=== PATIENT | female | born 1935 | race Caucasian/White ===

== ENCOUNTER → 2017-09-29 | Outpatient (CLI) | payer MEDICARE, OTHER ==
[~2017-09-29] MED LIST: ALE70 PO; ASP325 PO; ASPI-1267; ASPI-757 PO; ASPI81TA94 PO; ATOR40TA24; ATOR40TA24 PO; AVALIDE; BENZ200C38 PO; CALC-1046 PO; CALC-515 PO; CALC-797 PO; CALC500T42 PO; CALC500T6 PO; CELE-1 PO; CEP500 PO; CEPH500T7 PO; CHOL500045 PO; CLO75 PO; CLOP75TA43 PO; CYC10 PO; DOC100 PO; DOXY-181 PO; ESCI20TA38 PO; FLUT16SP20 NS; GLUC-234 PO; GLUC1TAB35 PO; GUAI120L3 PO; HYDR-385 PO; IPRA15SP7 NS; IRBE1TAB24 PO; IRBE75TA4 PO; KET10 PO; LINA145C PO; LOPE-95 PO; LOR5 PO; LORA1TAB69 PO; LOSA-31; LOSA-32 PO; LOSA-38 PO; LOSA-51 PO; MEC25 PO; MECL12.5 PO; MECL25TA9 PO; MEP50 PO; METH4TAB66 PO; METO25TA93; MULT-820 PO; MULT-865 PO; NAP500 PO; OMEG300C PO; OMEP-218 PO; ONDA4TAB PO; PANT40TA65 PO; PER PO; PNEI IJ; POTT20; PRA20 PO; PRE20 PO; PRED-1 PO; PRED20TA6 PO; ROS10 PO; ROSU20TA23 PO; TICA90TA PO; VIT-9 PO; VIT1CAPS34 PO; [UNRECOGNIZED DRUG - CODE] PO; [UNRECOGNIZED DRUG - CODE] PO; [UNRECOGNIZED DRUG - OTHER] PO; [UNRECOGNIZED DRUG - REMARK]
== END ==
LOC: LAB 13:46
PROVIDERS: ATTEND Internal Medicine
DX: E03.9 Hypothyroidism, unspecified (principal)
CPT/HCPCS: 36415; 84443

== ENCOUNTER 2017-12-14 10:26 | Outpatient (RCR) | payer MEDICARE, OTHER ==
[2017-12-08 10:04] VITALS: BP_SYST 132
[2017-12-08 10:19] LABS: PLATELET COUNT, AUTOMATED 115 K/uL (150-450)
[~2017-12-14 10:26] MED LIST changes: +CHOL10005 PO; +CHOL200051 PO; +CYAN250013; +MECL25TA27 PO; +MULT-27 PO; +OMEG100032 PO; +OMEG10007
[2017-12-14 10:33] VITALS: BP 136/61
--- NOTE | 2017-12-14 17:13 | ONCOLOGY FOLLOW UP NOTE ---
EVENT DATE: December 14, 2017 DIAGNOSES 1. Multiple lytic lesions and latencies involving the calvaria, proximal right femur, distal left radius and ulna. 2. History of left breast cancer, status post lumpectomy and adjuvant radiation therapy in 1989. 3. Hypertension. CHIEF COMPLAINT Patient is here today for followup of her breast cancer. ONCOLOGY HISTORY The patient is an 82-year-old woman who had history of left breast cancer status post lumpectomy in 1989 followed by adjuvant radiation therapy. She received her radiation therapy between January 23, 1990 through March 14, 1990. The patient did not receive any chemotherapy or hormonal therapy after surgery. All of her lymph nodes, as per patient, were negative for metastases at that time. She presented with loss of appetite and weight in 2012. The patient had a GI workup and was found to have gallstones. The patient had a cholecystectomy , but continued to have the same problem with diarrhea, loss of appetite and loss of weight. She had a CT scan of the head on June 02, 2011 which was negative at that time. She had a skeletal bone survey done on June 09, 2011 which revealed the presence of small lucencies in the calvaria, proximal right femur, distal left radius and ulna. Serum protein electrophoresis and urine protein electrophoresis came back normal, ruling out the possibility of multiple myeloma. The patient is here today for followup of her multiple lytic bone lesions. The patient is doing fine except she has worsening arthritis, especially of the knees. The patient is going to see an orthopedic surgeon in [place] for further evaluation and management. HISTORY OF PRESENT ILLNESS Patient is here today for followup of her breast cancer. She is doing fine currently. She has some runny nose. She has generalized joint pains due to arthritis. She has dizzy spells lately and she is followed by her primary care for that. She is complaining of headache occasionally. PAST MEDICAL HISTORY 1. Left breast cancer, status post lumpectomy followed by radiation therapy in 1989. 2. Hypercholesterolemia. 3. Hypertension. 4. Arthritis. PAST SURGICAL HISTORY 1. Back surgery in 1996 and 2003. 2. Surgery of left and right legs for varicose veins in January 2011. 3. Tonsillectomy. 4. Appendectomy. 5. Spinal neck surgery. 6. Cholecystectomy in 2010. 7. Carpal tunnel release. 8. Hysterectomy, but ovaries are intact. 9. Lumpectomy of left breast in 1989. 10. Right knee arthroscopic surgery on June 14, 2016. SOCIAL HISTORY The patient is . She has four sons and one daughter. 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 Denies any abuse of tobacco , alcohol or drugs. FAMILY HISTORY Father had prostate cancer. Mother had metastatic cancer. She does not know exactly the same. CURRENT MEDICATIONS 1. Vitamin B 5000 U daily. 2. PreserVision tablets, 1 tablet daily. 3. Fish oil 300 mg daily. 4. Calcium 600 mg daily. 5. Aspirin 325 mg daily. 6. Hyzaar 50/12.5 tablets, 1 tablet daily. 7. Multivitamin 1 tablet daily. ALLERGIES She is allergic to CODEINE, DARVOCET, ULTRAM, DOXEPIN, MORPHINE SULFATE, DIPYRIDAMOLE, DARVON, NORGESIC, CEREBYX, PERCOCET, AMOXICILLIN. REVIEW OF SYSTEMS CONSTITUTIONAL: No appetite or weight change. No fever, chills or sweating. No recent infection. HEENT: Ears: No tinnitus or hearing problem. Nose: She has runny nose. Throat: No sore throat or mouth ulcers. Eyes: No diplopia or visual changes. RESPIRATORY: No shortness of breath. No cough, expectoration or hemoptysis. CARDIOVASCULAR: No chest pain, orthopnea, or paroxysmal nocturnal dyspnea (PND) . No edema. No palpitations. GASTROINTESTINAL: She has intermittent constipation. GENITOURINARY: No hematuria or dysuria. MUSCULOSKELETAL: She has generalized joint pains. NEUROLOGICAL: She has dizzy spells and occasional headache. HEMATOLOGIC/LYMPHATIC: She is weak, tired and fatigued. No enlarged lymph nodes. SKIN: No skin rash or lumps. PSYCHIATRIC: No anxiety or depression. PHYSICAL EXAMINATION GENERAL: Looks stable. Well-developed, well-nourished, and in no acute distress. VITAL SIGNS: Blood pressure 136/61, pulse 75 per minute, respirations 16 per minute, temperature 98.1, pulse ox 88% on room air. HEENT: Head: Atraumatic. No sinus tenderness to palpation. Eyes: No icterus or conjunctivitis. Mouth and throat: No oral thrush or mucositis. NECK: Supple. No cervical or supraclavicular lymphadenopathy. LUNGS: Clear to auscultation and percussion bilaterally. HEART: Regular rate and rhythm. No gallops, murmurs, clicks or rubs. ABDOMEN: Soft and lax. No tenderness. No hepatosplenomegaly. No masses. EXTREMITIES: On the left foot, there is a firm mass at the middle of the plantar surface of the left foot about 0.5 cm in diameter. LYMPHATICS: No peripheral lymphadenopathy. NEUROLOGICAL: Conscious, alert and oriented times three. No focal motor or sensory deficits. PSYCHIATRIC: Mood and affect appear normal. SKIN: No skin rash, bruise or purpuric eruption. DIAGNOSTIC DATA CBC showed a white count 4.9, hemoglobin 15, hematocrit 44.1, platelets 115, 000. Chem panel totally normal except AST 46. Tumor markers with CA 15-3 is normal at 13, and CA 27-29 is normal at 15.8. ASSESSMENT 1. History of left breast cancer status post lumpectomy and adjuvant radiation therapy in 1989. Patient had multiple lucencies in the bone including calvarium , proximal right femur and distal left radius and ulna. Serum protein electrophoresis came back normal. There was polyclonal protein in the urine. Workup for recurrent breast cancer including tumor markers with CA 27-29 and CA 15-3 came back normal. MRI of the brain was negative. PET scan was also negative. Lucencies in the bone could be due to either vitamin B deficiency or osteoporosis. Patient is doing fine currently. Her tumor markers are normal currently and the patient does not have any evidence of disease recurrence. I am planning to continue followup in four months with CBC, chem panel, CA 27-29 and CA 15-3. 2. Generalized arthritis. 3. Osteopenia on calcium supplement. 4. Hypertension on treatment. 5. History of vitamin D deficiency. Patient was on supplement which was discontinued by her recently. PLAN 1. Check vitamin D level today. 2. Patient to return in four months with CBC, chem panel, CA 27-29 and CA 15- 3. 3. Patient to contact us for any new concerns or complaints. SARITHAD
== END 2018-01-19 16:18 | disposition home or self-care (01) ==
LOC: ONC 10:26
PROVIDERS: ATTEND Internal Medicine Hematology
DX: Z85.3 Personal history of malignant neoplasm of breast (principal); M19.90 Unspecified osteoarthritis, unspecified site; M85.80 Other specified disorders of bone density and structure, unspecified site; I10 Essential (primary) hypertension; R53.1 Weakness; R53.83 Other fatigue
CPT/HCPCS: 36415; 82306; 85025; 86300; G0463; 82040; 82247; 82310; 82374; 82435; 82565; 82947; 84075; 84132; 84155; 84295; 84450; 84460; 84520; 99212

== ENCOUNTER 2018-02-27 10:45 | Outpatient (RCR) | payer MEDICARE, OTHER ==
--- NOTE | 2017-12-01 11:51 | PT INITIAL EVALUATION ---
MEDICAL DIAGNOSIS: R42 Dizziness, nonspecific, R 42 Vertigo TREATMENT DIAGNOSIS: R26.89 Imbalance DATE OF ONSET: 07/02/17 SUBJECTIVE: Kassidy Stearns presents to PT for dizziness, insidious onset in the fall of 2016. She has had vertigo in the past. She relates her BP, heart and ears have been checked out in the last 1-2 months and they're all fine. She fell in her bathroom 12/01/17 due to this dizziness, striking her R head and shoulder. She can't relate cause and effect except that head down positions will provoke her symptoms. Her symptoms are nausea, then dizziness without spinning, then headache. She isn't vacuuming or dusting her home because of the need for head changes. Pain location is upper neck and described as ache. Pain scale is 0 on a ten point pain scale. Pain is worse with unsure and better with Tylenol. REHAB PROBLEM LIST: Increased Pain Decreased ROM Decreased Strength Impaired Transfers Decreased Endurance Decreased Mobility Decreased Gait PREVIOUS MEDICAL HISTORY: HTN, A. fib., BPPV, stent (2011), breast cancer (), TIA, 3 lumbar and one cervical surgery. OCCUPATION: Retired. Lives in a split level home with her , has her sons who check in on them. Kassidy relates she has less energy with house cleaning, only able to vacuum or dust one room per day, whereas before these symptoms she could clean 2+ rooms per day. OBJECTIVE: Posture: Forward head, increased thoracic kyphosis, R mild valgus knee, hips flexed ~20 degrees. ROM: Cervical PROM rotation 50% B, [id number]%, cervical pain but no dizziness. Strength: LE's 4-/5. Palpation: Tight cervical and thoracic soft tissue. Special Tests: Negative B Hallpike and roll test for vertiginous signs and symptoms. Mobility: Sit<>stand with LE's against mat table or UE's use, slow, heels 6" apart. Gait: Ambulates with feet clearing the floor, almost passing each other, near wayne and furniture for balance, gait speed 6 sec/10 feet (limited community ambulator). Balance: Increased A/P postural sway with heel together on firm, or eyes closed heels apart, increased sway on Airex with heels apart eyes open, R and retro balance loss with static stand on Airex with eyes closed. Penny Balance Assessment: 33/56, a high fall risk. Other Objective Findings: BP with position changes: Supine 153/72 Sit 134/73 Stand 132/50 ASSESSMENT: Kassidy Stearns my have vertiginous (basilar?) or silent migraines or BP changes affecting her symptoms of dizziness. She'll see her neurological PA-C 12/19/17. She also presents with high fall risk and LE weakness. She could benefit from PT to reduce fall risk. Short Term Goals/Patient's Goals 4 weeks: Bend over to vacuum, dust without nausea/dizziness, turns 180 degrees with balance control. 8 weeks: Clean 2 rooms/day, walk more steadily. PLAN: Patient to be seen for Strengthening/condition, Range of Motion, Stretching, Neuromuscular Re-ed, Gait Trg/Balance Trg, Home Exercise Program 2x/ Week for 2 Months Thank you for this referral. If you have any questions, comments, or concerns about this report or plan, please contact me at . SARITHAD
--- NOTE | 2018-01-01 12:58 | PT PLAN OF CARE ---
Physician: Dr. Kip Camilo Patient is being seen: 2x/week Therapist: Beverly Verdugo PT Medical Diagnosis: R42 Dizziness, nonspecific, R 42 Vertigo Treatment Diagnosis: R26.89 Imbalance Date of Onset: 07/02/17 Date of Initial Evaluation: 12/01/17 Date patient was last seen: 01/01/18 Number of treatments: 10 Number of cancellations/No shows: 0 INTERVENTIONS: Strengthening/condition Range of Motion Stretching Neuromuscular Re-ed Gait Trg/Balance Trg Home Exercise Program GOALS/PATIENT'S GOAL: 4 weeks: Bend over to vacuum, dust without nausea/dizziness, turns 180 degrees with balance control. both met 8 weeks: Clean 2 rooms/day, walk more steadily. both progressing Patient Compliance: Excellent Prognosis: Good Reasons for continuing therapy: S: Kassidy denies dizziness but still has unsteadiness with gait. Her LBP has limited gait exercises. She still has limited house cleaning endurance. O: Gait/Balance: Kassidy no longer weaves during gait with head motion but does have change of step pattern and speed. Penny Balance Assessment improved to 50/56 , an 11% impairment. Special Tests: Negative B Hallpike and roll test for vertiginous signs and symptoms. Mobility: Sit<>stand without LE's against mat table or UE's use, quickly with immediate standing balance now, heels 4" apart. A/P: Kassidy Stearns is improving gait, endurance and balance. She could benefit from PT to continue vestibular habituation in gait, work balance as her lumbar area allows. If you agree, we'll continue at 2x/week through December. Thank you. LIZA
--- NOTE | 2018-01-29 12:41 | PT PLAN OF CARE ---
Physician: Dr. Kip Camilo Patient is being seen: 2x/week Therapist: Beverly Verdugo, PT Medical Diagnosis: R42 Dizziness, nonspecific, R 42 Vertigo Treatment Diagnosis: R26.89 Imbalance Date of Onset: 07/02/17 Date of Initial Evaluation: 12/01/17 Date patient was last seen: 01/24/18 Number of treatments: 18 Number of cancellations/No shows: 0 INTERVENTIONS: Strengthening/condition Neuromuscular Re-ed Gait Trg/Balance Trg GOALS/PATIENT'S GOAL: 4 weeks: Bend over to vacuum, dust without nausea/dizziness, turns 180 degrees with balance control. all met 8 weeks: Clean 2 rooms/day (met), walk more steadily. (progressing) 12 weeks: Kassidy ambulates without weaving or discordant steps with head motion, demonstrates stepping reflex for balance recovery, stable gait on uneven surfaces. not met Patient Compliance: Excellent Prognosis: Good Reasons for continuing therapy: S: Kassidy relates she can clean more than 2 rooms now. She reports her balance fluctuates still, but she denies dizziness. O: Cervical AROM WFL without dizziness. Her cataracts are worsening. Strength: B squat to 75 degrees. Gait/balance: Kassidy now ambulates at 77 steps/minutes, up from 65 steps/min., with heels strike to early toe off. She turns with control. Static and dynamic balance on foam with retro balance disturbance. Gait with eyes closed with weaving L and R. Penny Balance Assessment reduced from 50 to 46/56 today (she was concerned with her being in the ER). Kassidy' able to clear 6" and 8" curbs, but with carrying weights, she weaves in clearing the curbs. Gait with head motions with slower cadance and sometimes discordant steps. Mobility: Sit<>stand one attempt, heels 4" apart. A/P: Kassidy Stearns is improving gait and balance but is still a fall risk. if you agree, we'll continue through January, 2x/week to new goal for gait stability and reduced fall risk. Thank you. LIZA
== END 2018-03-01 ==
LOC: PT 10:45
PROVIDERS: ATTEND Internal Medicine
DX: R42 Dizziness and giddiness (principal); R26.89 Other abnormalities of gait and mobility; I10 Essential (primary) hypertension; Z95.5 Presence of coronary angioplasty implant and graft; I48.91 Unspecified atrial fibrillation; Z85.3 Personal history of malignant neoplasm of breast; Z86.73 Personal history of transient ischemic attack (TIA), and cerebral infarction without residual deficits
CPT/HCPCS: 97162

== ENCOUNTER 2018-03-02 13:00 | Outpatient (RCR) | payer MEDICARE, OTHER ==
--- NOTE | 2018-03-02 16:34 | PT PLAN OF CARE ---
Physician: Dr. Kip Camilo Patient is being seen: 2x/week Therapist: Beverly Verdugo, PT Medical Diagnosis: R42 Dizziness, nonspecific, R 42 Vertigo Treatment Diagnosis: R26.89 Imbalance Date of Onset: 07/02/17 Date of Initial Evaluation: 12/01/17 Date patient was last seen: 02/27/18 Number of treatments: 26 Number of cancellations/No shows: 0 INTERVENTIONS: Strengthening/condition Range of Motion Stretching Neuromuscular Re-ed Gait Trg/Balance Trg Home Exercise Program GOALS/PATIENT'S GOAL: 4 weeks: Bend over to vacuum, dust without nausea/dizziness, turns 180 degrees with balance control. all met 8 weeks: Clean 2 rooms/day (met), walk more steadily. (partially met) 12 weeks: Kassidy ambulates without weaving or discordant steps with head motion ( met), demonstrates stepping reflex for balance recovery (met), stable gait on uneven surfaces (met). Patient Compliance: Excellent Prognosis: Good Reasons for discontinuing therapy: S: Kassidy denies dizziness or falls. She will see her eye surgeon March 09 about her cataracts. Posture: Forward head, increased thoracic kyphosis, R mild valgus knee, hips flexed ~20 degrees. ROM: Cervical PROM rotation R 60% and L 75%. Gait/Balance: Kassidy ambulates at a slow cadance, feet clearing the floor and intermittently passing each other. She turns with control and weight shifts well. She has retro balance disturbance and loss with heel/toe rocking still. She clears curbs, walks over foam steadily. Penny Balance Assessment improved to 50/56, an 11% impairment. Special Tests: VOR x1 WNL. Mobility: Sit<>stand independent, heels 4" apart. A/P: Kassidy Stearns has resolved dizziness, improved gait and balance. Her joint stiffness and vision do contribute to her imbalance, and I hope this will improve after cataract surgery. I'll DC PT to [facility]. If Kassidy needs PT after eye surgery to integrate her visual ocular system, I would be happy to work with her. Thank you. LIZA
== END 2018-03-02 18:00 | disposition home or self-care (01) ==
LOC: PT 13:00
PROVIDERS: ATTEND Internal Medicine
DX: R42 Dizziness and giddiness (principal); R26.89 Other abnormalities of gait and mobility; I10 Essential (primary) hypertension; Z95.5 Presence of coronary angioplasty implant and graft; I48.91 Unspecified atrial fibrillation; Z85.3 Personal history of malignant neoplasm of breast; Z86.73 Personal history of transient ischemic attack (TIA), and cerebral infarction without residual deficits

== ENCOUNTER → 2018-03-15 | Outpatient (CLI) | payer MEDICARE, OTHER ==
[~2018-03-15] MED LIST changes: +DULO30CA35 PO; +GLUC100026 PO; +LEVO50TA86 PO
[2018-03-15 07:56] LABS: PLATELET COUNT, AUTOMATED 105 K/uL (150-450)
[2018-03-15 08:21] LABS: LDL CHOLESTEROL 45 mg/dl
== END ==
LOC: LAB 07:15
PROVIDERS: ATTEND Internal Medicine
DX: F41.9 Anxiety disorder, unspecified (principal); R52 Pain, unspecified; Z85.3 Personal history of malignant neoplasm of breast; E78.4 Other hyperlipidemia; I10 Essential (primary) hypertension; R79.89 Other specified abnormal findings of blood chemistry; G47.33 Obstructive sleep apnea (adult) (pediatric)
CPT/HCPCS: 36415; 82040; 82247; 82310; 82374; 82435; 82465; 82565; 82947; 83036; 83718; 84075; 84132; 84155; 84295; 84439; 84443; 84450; 84460; 84478; 84520; 85025; 85651; 86140

== ENCOUNTER 2018-04-12 09:53 | Outpatient (RCR) | payer MEDICARE, OTHER ==
[2018-04-03 10:31] LABS: PLATELET COUNT, AUTOMATED 109 K/uL (150-450)
[2018-04-12 09:59] VITALS: BP 132/72
--- NOTE | 2018-04-12 15:45 | [facility] ONCOLOGY NOTE ---
EVENT DATE: April 12, 2018 DIAGNOSES 1. Multiple lytic lesions and latencies involving the calvaria, proximal right femur, distal left radius and ulna. 2. History of left breast cancer, status post lumpectomy and adjuvant radiation therapy in 1989. 3. Hypertension. CHIEF COMPLAINT Patient is here today for followup of her breast cancer. ONCOLOGY HISTORY The patient is an 83-year-old woman who had history of left breast cancer status post lumpectomy in 1989 followed by adjuvant radiation therapy. She received her radiation therapy between January 23, 1990 through March 14, 1990. The patient did not receive any chemotherapy or hormonal therapy after surgery. All of her lymph nodes, as per patient, were negative for metastases at that time. She presented with loss of appetite and weight in 2012. The patient had a GI workup and was found to have gallstones. The patient had a cholecystectomy , but continued to have the same problem with diarrhea, loss of appetite and loss of weight. She had a CT scan of the head on June 02, 2011 which was negative at that time. She had a skeletal bone survey done on June 09, 2011 which revealed the presence of small lucencies in the calvaria, proximal right femur, distal left radius and ulna. Serum protein electrophoresis and urine protein electrophoresis came back normal, ruling out the possibility of multiple myeloma. The patient is here today for followup of her multiple lytic bone lesions. The patient is doing fine except she has worsening arthritis, especially of the knees. The patient is going to see an orthopedic surgeon in [place] for further evaluation and management. HISTORY OF PRESENT ILLNESS The patient is here today for followup of her breast cancer. She is doing fine currently. She has some nasal discharge. She has generalized joint pain, especially in the left foot, left shoulder, and hands. She is weak, tired, and fatigued. PAST MEDICAL HISTORY 1. Left breast cancer, status post lumpectomy followed by radiation therapy in 1989. 2. Hypercholesterolemia. 3. Hypertension. 4. Arthritis. PAST SURGICAL HISTORY 1. Back surgery in 1996 and 2003. 2. Surgery of left and right legs for varicose veins in January 2011. 3. Tonsillectomy. 4. Appendectomy. 5. Spinal neck surgery. 6. Cholecystectomy in 2010. 7. Carpal tunnel release. 8. Hysterectomy, but ovaries are intact. 9. Lumpectomy of left breast in 1989. 10. Right knee arthroscopic surgery on June 14, 2016. SOCIAL HISTORY The patient is . She has four sons and one daughter. 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 Denies any abuse of tobacco , alcohol or drugs. FAMILY HISTORY Father had prostate cancer. Mother had metastatic cancer. She does not know exactly the same. CURRENT MEDICATIONS 1. Vitamin B 5000 U daily. 2. PreserVision tablets, 1 tablet daily. 3. Fish oil 300 mg daily. 4. Calcium 600 mg daily. 5. Aspirin 325 mg daily. 6. Hyzaar 50/12.5 tablets, 1 tablet daily. 7. Multivitamin 1 tablet daily. ALLERGIES She is allergic to CODEINE, DARVOCET, ULTRAM, DOXEPIN, MORPHINE SULFATE, DIPYRIDAMOLE, DARVON, NORGESIC, CEREBYX, PERCOCET, AMOXICILLIN. REVIEW OF SYSTEMS CONSTITUTIONAL: No appetite or weight change. No fever, chills or sweating. No recent infection. HEENT: Ears: No tinnitus or hearing problem. Nose: She has nasal discharge. Throat: No sore throat or mouth ulcers. Eyes: No diplopia or visual changes. RESPIRATORY: No shortness of breath. No cough, expectoration or hemoptysis. CARDIOVASCULAR: No chest pain, orthopnea, or paroxysmal nocturnal dyspnea (PND) . No edema. No palpitations. GASTROINTESTINAL: No nausea or vomiting. No diarrhea or constipation. No change in bowel movements. No heartburn or swallowing difficulties. No abdominal pain. No jaundice. No hematemesis, melena or rectal bleeding. GENITOURINARY: No hematuria or dysuria. MUSCULOSKELETAL: She has pain in her left foot, left shoulder, and hands. NEUROLOGICAL: No tingling or numbness in the hands or feet. No headaches or convulsions. HEMATOLOGIC/LYMPHATIC: She is weak, tired, and fatigued. SKIN: No skin rash or lumps. PSYCHIATRIC: No anxiety or depression. PHYSICAL EXAMINATION GENERAL: Looks stable. Well developed, well nourished, and in no acute distress. VITAL SIGNS: Blood pressure 152/72, pulse 78 per minute, respirations 16 per minute, temperature 97.7, pulse oximetry 94% on room air. HEENT: Head: Atraumatic. No sinus tenderness to palpation. Eyes: No icterus or conjunctivitis. Mouth and throat: No oral thrush or mucositis. NECK: Supple. No cervical or supraclavicular lymphadenopathy. LUNGS: Clear to auscultation and percussion bilaterally. HEART: Regular rate and rhythm. No gallops, murmurs, clicks or rubs. ABDOMEN: Soft and lax. No tenderness. No hepatosplenomegaly. No masses. EXTREMITIES: No cyanosis, clubbing or edema. LYMPHATICS: No peripheral lymphadenopathy. NEUROLOGICAL: Conscious, alert and oriented times three. No focal motor or sensory deficits. PSYCHIATRIC: Mood and affect appear normal. SKIN: No skin rash, bruise or purpuric eruption. DIAGNOSTIC/LABORATORY STUDIES CBC shows white count 4.2, hemoglobin 14.4, hematocrit 41.5, platelets 109,000. Chem panel normal except AST 56, ALT 59, and alkaline phosphatase 135. CA15- 3 is 15, and CA27.29 is 18. ASSESSMENT 1. History of left breast cancer, status post lumpectomy and adjuvant radiation therapy in 1989. Patient had multiple lucencies of the bones including calvarium, proximal right femur, and distal left radius and ulna. Serum protein electrophoresis came back normal. There was polyclonal protein in the urine. Workup of recurrent breast cancer including tumor markers CA27.29 and CA15-3 came back normal. The MRI of the brain was negative. PET scan was also negative. Lucencies in the bone could be due to either vitamin deficiencies or osteoporosis. Patient really is doing very well currently. Her tumor markers are normal all the time. I am planning to continue followup. I will see her again in six months with CBC, chem panel, CA27.29, and CA15-3. 2. Generalized arthritis. 3. Osteopenia, on calcium supplement. 4. Hypertension, on treatment. 5. History of vitamin D deficiency, on supplementation. PLAN 1. Continue followup. 2. Patient to return in six months with CBC, chem panel, CA27.29, and CA15-3. 3. Patient to contact us for any new concern or complaints. LIZA
[2018-04-13] MEDS ORDERED: ESCI10TA8 PO ×2 (10:04→10:13)
[2018-04-13] MEDS ORDERED: LEVO50TA86 PO (10:04)
== END 2018-04-18 14:03 | disposition home or self-care (01) ==
LOC: ONC 09:53
PROVIDERS: ATTEND Internal Medicine Hematology
DX: Z85.3 Personal history of malignant neoplasm of breast (principal); M19.90 Unspecified osteoarthritis, unspecified site; M85.80 Other specified disorders of bone density and structure, unspecified site; I10 Essential (primary) hypertension; R53.1 Weakness; R53.83 Other fatigue
CPT/HCPCS: 36415; 85025; 86300; G0463; 82040; 82247; 82310; 82374; 82435; 82565; 82947; 84075; 84132; 84155; 84295; 84450; 84460; 84520; 99212

== ENCOUNTER → 2018-04-24 | Outpatient (CLI) | payer MEDICARE, OTHER ==
[~2018-04-24] MED LIST changes: +ESCI10TA8 PO
--- NOTE | 2018-04-24 11:29 | RADIOLOGY IMAGING REPORT ---
FACILITY: [facility] PATIENT NAME: Kassidy Stearns : 1935 MR: [id number] V: [id number] EXAM DATE: ORDERING PHYSICIAN: CARLOTTA BILLINGSLEY TECHNOLOGIST: Location: [facility] Patient: Kassidy Stearns : 1935 Visit/Account:[id number] Date of Sevice: 04/24/2018 DEXA Scan Clinical history: Screening. Comparison: DEXA scan from 12/06/2012. LUMBAR SPINE: The bone mineral density (BMD) measured from L1-L4 correlates with a Z-score of 1.2 and a T-score of -0.7 which is Normal as defined by the World Health Organization. The corresponding risk of fracture in the lumbar spine is 1-2 times increased compared with a young adult reference population. This v alue has increased by 4.8 % since the prior study. More than 5% change is considered significant. HIP: Bone mineral density (BMD) measured in the LEFT total hip region correlates with a Z-score 0.6 and a T-score of -1.6 which is osteopenia as defined by the World Health Organization. The corresponding r isk of fracture in the hip is 3-4 times increased compared to a young adult reference population. Thi s value has decrease by five % since the prior study. More than 5% change is considered significant. T score left femoral neck -1.6 Bone mineral density (BMD) measured in the Femoral Neck region measures 0.809 g/cm?. IMPRESSION: 1. Lumbar spine: Normal. There has been 4.8% increase in the bone mineral density since the previou s exam. 2. Left Total Hip: Osteopenia. There has been 5% decrease in the bone mineral density since the pre vious exam. 3. Femoral Neck: Bone Mineral Density is 0.809 g/cm? The next DEXA scan of this patient should include the following sites: L1-L4 and the left hip. FRAX? WHO Fracture Risk Assessment Tool link: <http://www.shef.ac.uk/FRAX/tool.jsp?locationValue=9> PLEASE NOTE: 1) The World Health Organization defines low BMD as follows: T-score Normal > -1 Osteopenia < -1 and > -2.5 Osteoporosis < -2.5 without fractures Established osteoporosis < -2.5 with fractures 2) In general, you may wish to consider: Diagnosis Treatment Follow-up DEXA Normal BMD Prevention 2-3 years Osteopenia Prevention/therapy 1-2 years Osteoporosis Therapy Yearly 3) Fracture risk estimated from the T-score is more accurate for vertebral fractures (often spontane ous) than for hip fractures. Report Dictated By: Shirin Campos MD at 04/24/2018 11:23 AM Report E-Signed By: Shirin Campos MD at 04/24/2018 11:24 AM WSN:[email or web address]
--- NOTE | 2018-04-24 11:35 | RADIOLOGY IMAGING REPORT ---
FACILITY: [facility] PATIENT NAME: Kassidy Stearns : 1935 MR: [id number] V: [id number] EXAM DATE: ORDERING PHYSICIAN: CARLOTTA BILLINGSLEY TECHNOLOGIST: Location: [facility] Patient: Kassidy Stearns : 1935 Visit/Account:[id number] Date of Sevice: 04/24/2018 THYROID HISTORY: elevated LFTs, thyroid nodules COMPARISON: February 22, 2017 FINDINGS: SIZE: Right lobe: 3.8 x 1.4 x 1.6 cm Left lobe: 3.1 x 1.3 x 1.1 cm Isthmus: 5.4 mm PARENCHYMA: Homogeneous. NODULES: Right lobe: * There is a 1.6 x 1.1 x 1.5 cm solid hypoechoic nodule in the inferior right lobe containing a coar se calcification. This appears similar in size when compared the prior study. This nodule has appar ently been previously biopsied. There are smaller cysts identified in the right lobe. Left lobe: * None discrete. Isthmus: * None discrete. VASCULARITY: Within normal limits. ADDITIONAL FINDINGS: None. IMPRESSION: 1.6 cm solid hypoechoic nodule in the inferior right lobe containing a coarse calcification appears s imilar in size when compared to the prior study. This has apparently been previously biopsied. The biopsy results are not currently available to me at this time REFERENCE: 2015 [place] [employer] Management Guidelines for Adult Patients with Thyroid Nodules and D ifferentiated Thyroid Cancer: The [place] [employer] Guidelines Task Force on Thyroid Nodul es and Differentiated Thyroid Cancer. SONOGRAPHIC PATTERNS: * Benign: Purely cystic nodules (no solid component); estimated risk of malignancy <1 percent; no bi opsy recommended. * Very Low Suspicion: Spongiform or partially cystic nodules without any of the sonographic features described in low, intermediate, or high suspicion patterns; estimated risk of malignancy <3 percent; consider FNA at > 2 cm (Observation without FNA is also a reasonable option). * Low Suspicion: Isoechoic or hyperechoic solid nodule, or partially cystic nodule with eccentric so lid areas, without microcalcification, irregular margin or ETE (extra-thyroidal extension), or taller than wide shape; estimated risk of malignancy 5-10 percent; recommend FNA at >1.5 cm. * Intermediate Suspicion: Hypoechoic solid nodule with smooth margins without microcalcifications, E TE (extra-thyroidal extension), or taller than wide shape; estimated risk of malignancy 10-20 percent ; recommend FNA at > 1 cm. * High Suspicion: Solid hypoechoic nodule or solid hypoechoic component of a partially cystic nodule with one or more of the following features: irregular margins (infiltrative, microlobulated), microc alcifications, taller than wide shape, rim calcifications with small extrusive soft tissue component, evidence of ETE (extra-thyroidal extension); estimated risk of malignancy >70-90 percent; recommend FNA at > 1 cm. NOTES: * Although a sonographically suspicious subcentimeter thyroid nodule without evidence of extrathyroi jed extension or sonographically suspicious lymph nodes may be observed with close sonographic follow -up rather than pursuing immediate FNA, patient age and preference may modify decision-making. A > 50% interval increase in nodule volume and/or development of new suspicious sonographic features are felt to be a valid reasons for potential re-aspiration of a nodule previously shown to have benig n FNA cytology. Report Dictated By: Shirin Campos MD at 04/24/2018 11:27 AM Report E-Signed By: Shirin Campos MD at 04/24/2018 11:31 AM WSN:[email or web address]
--- NOTE | 2018-04-24 17:33 | RADIOLOGY IMAGING REPORT ---
FACILITY: [facility] PATIENT NAME: Kassidy Stearns : 1935 MR: [id number] V: [id number] EXAM DATE: ORDERING PHYSICIAN: CARLOTTA BILLINGSLEY TECHNOLOGIST: Location[place] [facility] [place] Patient: Kassidy Stearns : 1935 Visit/Account:[id number] Date of Sevice: 04/24/2018 Complete abdominal ultrasound HISTORY: elevated LFTs COMPARISON: CT abdomen and pelvis dated 04/12/2012. Findings: Standard complete abdominal ultrasound is performed. Pancreas: Visualized portions of the pancreas are unremarkable. Liver: Negative. Gallbladder and biliary system: The gallbladder is absent. Stable mild dilation of the common bile du ct measuring 8 to 9 mm compared with 04/12/2012. No intrahepatic biliary ductal dilatation. Spleen: Negative. Aorta and IVC: The visualized aorta and IVC are patent. Kidneys: The right kidney measures 10.1 x 4.3 x 4.1 cm and the left kidney measures 10.8 x 5.2 x 4.1 cm. Normal echogenicity. No hydronephrosis. Ascites: None. IMPRESSION: 1. The gallbladder is absent. Stable mild dilation of the common bile duct measuring 8 to 9 mm compar ed with 04/12/2012. No intrahepatic biliary ductal dilatation. 2. Otherwise unremarkable abdominal ultrasound. Report Dictated By: Alton Valenzuela MD at 04/24/2018 4:51 PM Report E-Signed By: Alton Valenzuela MD at 04/24/2018 5:30 PM WSN:[email or web address]
== END ==
LOC: US 01:47
PROVIDERS: ATTEND Internal Medicine
DX: Z13.820 Encounter for screening for osteoporosis (principal); Z90.49 Acquired absence of other specified parts of digestive tract; M85.88 Other specified disorders of bone density and structure, other site; E04.1 Nontoxic single thyroid nodule
CPT/HCPCS: 76536; 76700; 77080

== ENCOUNTER → 2018-05-14 | Outpatient (CLI) | payer MEDICARE, OTHER ==
[~2018-05-14] MED LIST changes: +LEVO25TA61 PO; +POTA99TA6 PO
[2018-05-14 11:17] LABS: PLATELET COUNT, AUTOMATED 117 K/uL (150-450)
--- NOTE | 2018-05-14 14:39 | RADIOLOGY IMAGING REPORT ---
FACILITY: [facility] PATIENT NAME: Kassidy Stearns : 1935 MR: [id number] V: [id number] EXAM DATE: ORDERING PHYSICIAN: CARLOTTA BILLINGSLEY TECHNOLOGIST: Location: [facility] Patient: Kassidy Stearns : 1935 Visit/Account:[id number] Date of Sevice: 05/14/2018 Exam type: SHOULDER MIN 2 VIEWS LEFT History: SHOULDER PAIN Comparison: October 25, 2016. Findings: Three views of the left shoulder demonstrate no evidence of acute fracture or dislocation. There is mild to moderate narrowing of the left glenohumeral joint and subchondral cystic changes seen along t he inferior aspect of the glenoid. Cystic changes are also seen at the left humeral head. There are mild degenerative changes of the left AC joint. Numerous surgical clips project over the left axill irena region. Also noted are postsurgical changes of the lower cervical spine from anterior fusion IMPRESSION: 1. Mild to moderate degenerative changes of the left shoulder as described. If patient's pain al nues MR may be helpful Report Dictated By: Shirin Campos MD at 05/14/2018 2:31 PM Report E-Signed By: Shirin Campos MD at 05/14/2018 2:34 PM WSN:[email or web address]
== END ==
LOC: LAB 10:45
PROVIDERS: ATTEND Internal Medicine
DX: M19.012 Primary osteoarthritis, left shoulder (principal); R94.5 Abnormal results of liver function studies; E03.9 Hypothyroidism, unspecified; E04.1 Nontoxic single thyroid nodule; R42 Dizziness and giddiness; R52 Pain, unspecified; Z85.3 Personal history of malignant neoplasm of breast; I10 Essential (primary) hypertension
CPT/HCPCS: 36415; 80074; 81001; 82040; 82150; 82247; 82310; 82374; 82435; 82550; 82565; 82728; 82947; 83540; 83550; 83690; 84075; 84132; 84155; 84295; 84439; 84443; 84450; 84460; 84520; 85025; 86038

== ENCOUNTER 2018-06-20 13:00 | Outpatient (RCR) | payer MEDICARE, OTHER ==
--- NOTE | 2018-03-27 13:14 | PT INITIAL EVALUATION ---
MEDICAL DIAGNOSIS: M54.5 L-S pain, chronic TREATMENT DIAGNOSIS: Same DATE OF ONSET: 10/02/99 SUBJECTIVE: Kassidy Stearns presents to PT for chronic L back pain, at the spinal junctions (C-T, T-L and L-S) chronic in nature, but worsening in the last year. She's had 2-3 lumbar surgeries (Dr. Rivas, [place], [place]) and one cervical disc surgery. Oswestry Disability Index 40% impairment, limited in standing, walking, travel and lifting. Pain location is L L-S, L T-L, L C-T junction and described as ache and stiffness. Pain scale is 5 on a ten point pain scale. Pain is worse with standing, walking, long car rides and better with heat. REHAB PROBLEM LIST: Increased Pain Decreased ROM Decreased Strength Decreased Mobility Decreased Gait PREVIOUS MEDICAL HISTORY: Stent 05/2012, macular degeneration, planned cataract surgeries this summer, L lumpectomy for breast cancer, B [facility], cubital tunnel release. 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 OBJECTIVE: Posture: L lumbar scoliosis extending to the thoracic spine with long L LE, flattened lumbar curve and increased thoracic kyphosis, , hips and knees flexed ~25 degrees. ROM: AROM lumbar spine minimal flexion, extension with L L-S pain with extension, while flexion reduces symptoms. Thoracic AROM minimal extension, 50 % flexion, SB, rotation B. SI AROM WNL for age. Strength: Berman muscles L2-L5 intact for motor function 4+ to 5-/5, with L quad 4/ 5 (L knee pain). Palpation: Painful L L-S, T-L, LS soft tissue and with joint springing. Special Tests: Negative SLR, B. Positive L Mahin's for IT band tightness. DTR's quads and Achilles tendons 2/3 B. Mobility: Hypomobile lumbar and thoracic spine. Gait: Late heelstrike to toe off, B. ASSESSMENT: Kassidy Stearns presents with reduced spinal ROM for age, extension- biased pain, reduced flexibility, core and LE weakness affecting standing, walking and prolonged sitting tolerance. She had less pain and stiffness after ROM exercises. Short Term Goals 4 weeks: Kassidy stands 30 min. with L LBP 3/10, rates late morning balk pain / . 6 weeks: Kassidy rates L LBP 2/10 with standing 45 minutes, walks 1/2 mile with LBP 3/. Patient's Goals Do more standing housework with less LBP. PLAN: Patient to be seen for Manual Therapy Strengthening/condition Ice/Heat Range of Motion Spinal Stabilization Stretching Neuromuscular Re-ed Electrical Stim Posture/Body mechanics Gait Trg/Balance Trg Home Exercise Program 2x/Week for 6 Weeks Thank you for this referral. If you have any questions, comments, or concerns about this report or plan, please contact me at . [facility]
--- NOTE | 2018-05-04 13:08 | PT PLAN OF CARE ---
Physician: Dr. Kip Camilo Patient is being seen: 2x/week Therapist: Beverly Verdugo PT Medical Diagnosis: M54.5 L-S pain, chronic Treatment Diagnosis: Same Date of Onset: 10/02/99 Date of Initial Evaluation: 03/27/18 Date patient was last seen: 05/04/18 Number of treatments: 9 Number of cancellations/No shows: 0 INTERVENTIONS: Manual Therapy Strengthening Range of Motion Spinal Stabilization Stretching Electrical Stim Home Exercise Program Cervical GOALS: 4-6 weeks: Centralize L C5/6 symptoms to the neck, Kassidy sleeps without L C5/6 nerve pain or neck pain. PATIENT'S GOAL: Sleep without neck pain. Lumbar Goals: 4 weeks: Kassidy stands 30 min. with L LBP 3/10, rates late morning back pain 4/10. both met 6 weeks: Kassidy rates L LBP 2/10 with standing 45 minutes (met), walks 1/2 mile with LBP 3/10 (not met - B knee pain). Patient Goal: Do more standing housework with less LBP. Met Patient Compliance: Excellent Prognosis: Excellent Reasons for continuing therapy: S: Kassidy now denies LBP with ADL's. Oswestry Disability Index 13%. She has had a flare of cervical, L C5/6 pain in the last week, keeping her awake 10/10 pain scale, 6/10 during the day, worse with lifting. Neck Disability Index 51%. She has a history of cervical fusion (Dr. Rivas). Posture: L lumbar scoliosis extending to the thoracic spine with long L LE, flattened lumbar curve and increased thoracic kyphosis, , hips and knees flexed ~25 degrees. ROM: AROM lumbar spine WNL flexion, 50% extension. Cervical AROM rotation 75% B , fuad end feel, flexion 75%, extension 50% with L rotation, extension and flexion creating L C5/6 pain. T Strength: LE's 5-/5 except L quad 4/5 (L knee pain). Palpation: Painful L L-S, T-L, LS soft tissue and with joint springing. Special Tests: Negative SLR, Mahin's. DTR's UE's 2/3 and car muscles C5-C8 intact for motor function, 5-/5 except ER 4-/5, shoulder pain limited. L shoulder scour, drawers, empty can all negative. Supraspinatus 5-/5, pain free. Mobility: Hypomobile cervical and thoracic spine. A/P: Kassidy Stearns has minimal LBP and has L C5/6 paresthesia and cervical pain affecting sleep and lifting. I'm concerned her C5/6 disc is worn. If you agree, we'll work cervical PT 2x/week 6 weeks after Kassidy's cataract surgery next week to centralize symptoms and reduce pain, improve function. She had less pain but still L C6 symptoms after manual traction and soft tissue work today. Thank you. LIAZ
--- NOTE | 2018-06-20 15:12 | PT PLAN OF CARE ---
Physician: Dr. Kip Camilo Patient is being seen: 2x/week Therapist: Beverly Verdugo PT Medical Diagnosis: M54.5 L-S pain, chronic Treatment Diagnosis: Same Date of Onset: 10/02/99 Date of Initial Evaluation: 03/27/18 Date patient was last seen: 06/20/18 Number of treatments: 17, 8 of cervical treatment Number of cancellations/No shows: 0 INTERVENTIONS: Cervical stretching, strengthening, manual therapy, e-stim, heat, HEP GOALS: 4-6 weeks: Centralize L C5/6 symptoms to the neck (not met), Kassidy sleeps without L C5/6 nerve pain or neck pain (met). PATIENT'S GOAL: Sleep without neck pain. (met) Patient Compliance: Excellent Prognosis: Excellent Reasons for discontinuing therapy: S: Kassidy relates she still has fluctuating L C5/6/7 paresthesia at the forearm to thumb, no neck pain but shoulder pain, worse with cleaning, gabriella, cooking, up to 10/10 at the evening, 4-5/10 at rest. She can sleep without neck pain or L C5/6/7 paresthesia affecting her sleep. Neck Disability Index 36%. Posture: L lumbar scoliosis extending to the thoracic spine with long L LE, flattened lumbar curve and increased thoracic kyphosis, , hips and knees flexed ~25 degrees. ROM: AROM cervical spine 75% flexion, extension 50%, sidebend B 50%, rotation B 50%, no cerv. pain or L C5/6 symptoms. Thoracic AROM 25% extension, 75% flexion, SB, rotation B. SI AROM WNL for age. Strength: Berman muscles L C5/6/7 intact for motor function, 5-/5, pain free, while L infraspinatus painful at the shoulder, 3+/5, shoulder pain limited. Palpation: Tender LS, scaleni, painful L biceps long head, rotator cuff. Special Tests: Negative L ULTT median nerve, but this has fluctuated. Mobility: Cervical spine continues to tighten in the joints and soft tissue. A/P: Kassidy Stearns has had night time relief from nerve paresthesia but doesn't have lasting flexibility, joint mobility, still has pain with ADL's. As her PT gains aren't lasting, I'll DC cervical PT. I do feel she has L shoulder issues, but the cervical region is muddying that water. If I can be of assistance in Kassidy Stearns' PT in the future, I'd be happy to work with her. Thank you. LIZA
== END 2018-06-20 18:00 | disposition home or self-care (01) ==
LOC: PT 13:00
PROVIDERS: ATTEND Internal Medicine
DX: M54.5 Low back pain (principal); G89.29 Other chronic pain; Z85.3 Personal history of malignant neoplasm of breast
CPT/HCPCS: 97110; 97140; 97162; G0283

== ENCOUNTER → 2018-08-03 | Outpatient (CLI) | payer MEDICARE, OTHER | LOC: LAB 11:32 | PROVIDERS: ATTEND Internal Medicine | DX: E03.9 Hypothyroidism, unspecified (principal); R42 Dizziness and giddiness | CPT/HCPCS: 36415; 84439; 84443 ==

== ENCOUNTER → 2018-09-13 | Outpatient (CLI) | payer MEDICARE, OTHER ==
[~2018-09-13] MED LIST changes: +GABA-547 PO
[2018-09-13 10:08] LABS: PLATELET COUNT, AUTOMATED 139 K/uL (150-450)
--- NOTE | 2018-09-13 10:26 | EKG ---
[place] [facility] [place] NAME: SIGIFREDO SCHULTZ : [id number] MR: [id number] V: [id number] EXAM DATE: ORDERING PHYSICIAN: ASHANTI CARTWRIGHT TECHNOLOGIST: ADITI Test Reason : PRE OP Blood Pressure : / mmHG Vent. Rate : 081 BPM Atrial Rate : 081 BPM P-R Int : 134 ms QRS Dur : 106 ms QT Int : 392 ms P-R-T Axes : 038 028 045 degrees QTc Int : 455 ms Sinus rhythm Probable left atrial enlargement Nonspecific interventricular conduction delay Nonspecific ST findings Artifact in limb leads - repeat if needed Confirmed by BO STARKEY ([id number]) on 09/13/2018 7:56:11 PM Referred By: CHAY Confirmed By:BO STARKEY
== END ==
LOC: LAB 09:53
PROVIDERS: ATTEND Orthopaedic Surgery
DX: Z01.818 Encounter for other preprocedural examination (principal); Z01.812 Encounter for preprocedural laboratory examination; Z01.810 Encounter for preprocedural cardiovascular examination; R82.79 Other abnormal findings on microbiological examination of urine; I51.7 Cardiomegaly; M19.91 Primary osteoarthritis, unspecified site; Z85.3 Personal history of malignant neoplasm of breast; I25.2 Old myocardial infarction; Z95.5 Presence of coronary angioplasty implant and graft; Z99.81 Dependence on supplemental oxygen; Z79.82 Long term (current) use of aspirin; E03.9 Hypothyroidism, unspecified; N39.0 Urinary tract infection, site not specified; M75.102 Unspecified rotator cuff tear or rupture of left shoulder, not specified as traumatic; M19.012 Primary osteoarthritis, left shoulder
CPT/HCPCS: 36415; 81001; 82040; 82247; 82310; 82374; 82435; 82565; 82947; 84075; 84132; 84155; 84295; 84450; 84460; 84520; 85025; 87088; 93005

== ENCOUNTER → 2018-09-14 | Outpatient (CLI) | payer MEDICARE, OTHER ==
--- NOTE | 2018-09-17 10:44 | RADIOLOGY IMAGING REPORT ---
FACILITY: [facility] [place] PATIENT NAME: SIGIFREDO SCHULTZ : [id number] MR: [id number] V: [id number] EXAM DATE: [id number] ORDERING PHYSICIAN: CARLOTTA BILLINGSLEY TECHNOLOGIST: Zelda Sims PROCEDURE:BILATERAL DIGITAL SCREENING MAMMOGRAM WITH CAD ASSISTED INTERPRETATION & 3D TOMOSYNTHESIS COMPARISON:Prior mammograms 08/29/17, 05/23/16, 05/22/15, 05/21/14. INDICATIONS:SCREENING FINDINGS: This study was limited due to limited patient mobility and painful Left shoulder and painful Left breast. The Left breast is smaller than the Right from previous lumpectomy. The breasts are heterogeneously dense which may obscure small masses. The parenchymal pattern has remained stable allowing for difference in mammographic technique & patient positioning. DIAGNOSTIC CATEGORY 2--BENIGN FINDING. RECOMMENDATIONS: ROUTINE MAMMOGRAM AND CLINICAL EVALUATION. IMPRESSION: BIRADS 2: Benign finding. No significant abnormality is seen. Dictated by: Shirin Campos M.D. on 09/14/2018 at 14:31 Transcribed by: SELENA on 09/14/2018 at 14:39 Approved by: Shirin Campos M.D. on 09/17/2018 at 10:43 [facility]
== END ==
LOC: MAMO 02:20
PROVIDERS: ATTEND Internal Medicine
DX: Z12.31 Encounter for screening mammogram for malignant neoplasm of breast (principal); Z80.3 Family history of malignant neoplasm of breast
CPT/HCPCS: 77063; 77067

== ENCOUNTER → 2018-10-05 | Outpatient (CLI) | payer MEDICARE, OTHER | LOC: SPU 07:13 | PROVIDERS: ATTEND Internal Medicine | DX: E78.5 Hyperlipidemia, unspecified (principal); E03.9 Hypothyroidism, unspecified; I10 Essential (primary) hypertension; M25.512 Pain in left shoulder | CPT/HCPCS: 82465; 83718; 84439; 84443; 84478 ==

== ENCOUNTER 2018-10-11 09:54 | Outpatient (RCR) | payer MEDICARE, OTHER ==
[2018-10-05 10:01] VITALS: BP 126/61
[2018-10-05 10:35] LABS: PLATELET COUNT, AUTOMATED 125 K/uL (150-450)
[2018-10-11 10:02] VITALS: BP 118/67
--- NOTE | 2018-10-11 13:48 | [facility] ONCOLOGY NOTE ---
EVENT DATE: October 11, 2018 DIAGNOSES 1. Multiple lytic lesions and latencies involving the calvaria, proximal right femur, distal left radius and ulna. 2. History of left breast cancer, status post lumpectomy and adjuvant radiation therapy in 1989. 3. Hypertension. CHIEF COMPLAINT Patient is here today for followup of her breast cancer. ONCOLOGY HISTORY The patient is an 83-year-old woman who had history of left breast cancer status post lumpectomy in 1989 followed by adjuvant radiation therapy. She received her radiation therapy between January 23, 1990 through March 14, 1990. The patient did not receive any chemotherapy or hormonal therapy after surgery. All of her lymph nodes, as per patient, were negative for metastases at that time. She presented with loss of appetite and weight in 2012. The patient had a GI workup and was found to have gallstones. The patient had a cholecystectomy, but continued to have the same problem with diarrhea, loss of appetite and loss of weight. She had a CT scan of the head on June 02, 2011 which was negative at that time. She had a skeletal bone survey done on June 09, 2011 which revealed the presence of small lucencies in the calvaria, proximal right femur, distal left radius and ulna. Serum protein electrophoresis and urine protein electrophoresis came back normal, ruling out the possibility of multiple myeloma. The patient is here today for followup of her multiple lytic bone lesions. The patient is doing fine except she has worsening arthritis, especially of the knees. The patient is going to see an orthopedic surgeon in [place] for further evaluation and management. HISTORY OF PRESENT ILLNESS The patient is here today for followup of her breast cancer. She is doing fine currently except for pain in all her joints, especially the left shoulder, and the patient is scheduled on November 27, 2018, to have left rotator cuff repair. She has also headache. She is weak, tired, and fatigued. PAST MEDICAL HISTORY 1. Left breast cancer, status post lumpectomy followed by radiation therapy in 1989. 2. Hypercholesterolemia. 3. Hypertension. 4. Arthritis. PAST SURGICAL HISTORY 1. Back surgery in 1996 and 2003. 2. Surgery of left and right legs for varicose veins in January 2011. 3. Tonsillectomy. 4. Appendectomy. 5. Spinal neck surgery. 6. Cholecystectomy in 2010. 7. Carpal tunnel release. 8. Hysterectomy, but ovaries are intact. 9. Lumpectomy of left breast in 1989. 10. Right knee arthroscopic surgery on June 14, 2016. SOCIAL HISTORY The patient is . She has four sons and one daughter. 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 Denies any abuse of tobacco, alcohol or drugs. FAMILY HISTORY Father had prostate cancer. Mother had metastatic cancer. She does not know exactly the same. CURRENT MEDICATIONS 1. Vitamin B 5000 U daily. 2. PreserVision tablets, 1 tablet daily. 3. Fish oil 300 mg daily. 4. Calcium 600 mg daily. 5. Aspirin 325 mg daily. 6. Hyzaar 50/12.5 tablets, 1 tablet daily. 7. Multivitamin 1 tablet daily. ALLERGIES She is allergic to CODEINE, DARVOCET, ULTRAM, DOXEPIN, MORPHINE SULFATE, DIPYRIDAMOLE, DARVON, NORGESIC, CEREBYX, PERCOCET, AMOXICILLIN. REVIEW OF SYSTEMS CONSTITUTIONAL: No appetite or weight change. No fever, chills or sweating. No recent infection. HEENT: Ears: No tinnitus or hearing problem. Nose: She has nasal discharge. Throat: No sore throat or mouth ulcers. Eyes: No diplopia or visual changes. RESPIRATORY: No shortness of breath. No cough, expectoration or hemoptysis. CARDIOVASCULAR: No chest pain, orthopnea, or paroxysmal nocturnal dyspnea (PND). No edema. No palpitations. GASTROINTESTINAL: No nausea or vomiting. No diarrhea or constipation. No change in bowel movements. No heartburn or swallowing difficulties. No abdominal pain. No jaundice. No hematemesis, melena or rectal bleeding. GENITOURINARY: No hematuria or dysuria. MUSCULOSKELETAL: She has pain in her joints, especially the left shoulder. NEUROLOGICAL: She has occasional headache. HEMATOLOGIC/LYMPHATIC: She is weak, tired, and fatigued. SKIN: No skin rash or lumps. PSYCHIATRIC: No anxiety or depression. PHYSICAL EXAMINATION GENERAL: Looks stable. Well developed, well nourished, and in no acute distress. VITAL SIGNS: Blood pressure 118/67, pulse 77 per minute, respirations 16 per minute, temperature 98, pulse oximetry 92% on room air. HEENT: Head: Atraumatic. No sinus tenderness to palpation. Eyes: No icterus or conjunctivitis. Mouth and throat: No oral thrush or mucositis. NECK: Supple. No cervical or supraclavicular lymphadenopathy. LUNGS: Clear to auscultation and percussion bilaterally. HEART: Regular rate and rhythm. No gallops, murmurs, clicks or rubs. ABDOMEN: Soft and lax. No tenderness. No hepatosplenomegaly. No masses. EXTREMITIES: No cyanosis, clubbing or edema. LYMPHATICS: No peripheral lymphadenopathy. NEUROLOGICAL: Conscious, alert and oriented times three. No focal motor or sensory deficits. PSYCHIATRIC: Mood and affect appear normal. SKIN: No skin rash, bruise or purpuric eruption. DIAGNOSTIC/LABORATORY STUDIES CBC shows white count 5.1, hemoglobin 15, hematocrit 44.3, platelets 125,000. Chem panel totally normal except creatinine 0.5, AST 40, potassium 3.3. Other parameters are normal. CA 15-3 is 19 and CA 27.29 is 23.8. Both are within the normal range. Mammography bilaterally done in September 2018 was benign. ASSESSMENT 1. History of left breast cancer, status post lumpectomy and adjuvant radiation therapy in 1989. Patient had multiple lucencies in the bones including calvarium, proximal right femur, and distal left radius and ulna. Serum protein electrophoresis came back normal. There was polyclonal protein in the urine. Workup of recurrent breast cancer including tumor markers CA 27-29 and CA 15-3 all came back within the normal range. The MRI of the brain was negative. PET scan was also negative. Lucencies in the bone could be due to either vitamin deficiencies or osteoporosis. Patient is doing very well currently regarding her cancer. Tumor markers are within the normal range. I am planning to continue followup. I will see her again in six months with CBC, chem panel, CA 27-29 and CA 15-3. 2. Bilateral pelvic pain. Patient is concerned about ovarian cancer, which is positive in her family. I am planning to get a vaginal ultrasound and check the CA 125. 3. Generalized arthritis. Patient is scheduled for rotator cuff repair of left shoulder on November 27, 2018. 4. Osteopenia, on calcium supplement. 5. Hypertension, on treatment. 6. History of vitamin D deficiency, on supplementation. PLAN 1. Vaginal ultrasound. 2. Check CA 125. 3. Patient to return after the above if there is any abnormality. Otherwise, she will return in her followup in six months with CBC, chem panel, CA 27-29 and CA 15.3 if those tests are normal. 4. Patient to contact us for any new concern or complaints. SARITHAD
--- NOTE | 2018-10-11 16:23 | RADIOLOGY IMAGING REPORT ---
FACILITY: [facility] PATIENT NAME: Kassidy Stearns : 1935 MR: [id number] V: [id number] EXAM DATE: ORDERING PHYSICIAN: CAROLINA HAWTHORNE TECHNOLOGIST: Location: [facility] Patient: Kassidy Stearns : 1935 Visit/Account:[id number] Date of Sevice: 10/11/2018 TRANSVAGINAL NON-OB HISTORY: Pelvic pain bilaterally, postmenopausal bleeding TECHNIQUE: Transvaginal ultrasound pelvis. COMPARISON: CT abdomen pelvis July 10, 2014 FINDINGS: Patient is status post hysterectomy Ovaries: Right - not visualized Left - 1.2 x 1.3 x 0.6 cm Blood flow is documented in the left ovary by duplex Doppler ultrasound. Adnexa: Grossly unremarkable. Free pelvic fluid: None. IMPRESSION: Postsurgical changes from hysterectomy Right ovary was not visualized and the left ovary appears atrophic Report Dictated By: Shirin Campos MD at 10/11/2018 4:17 PM Report E-Signed By: Shirin Campos MD at 10/11/2018 4:19 PM WSN:[id number]
== END 2018-11-05 12:40 | disposition home or self-care (01) ==
LOC: ONC 09:54
PROVIDERS: ATTEND Internal Medicine Hematology
DX: Z08 Encounter for follow-up examination after completed treatment for malignant neoplasm (principal); Z85.3 Personal history of malignant neoplasm of breast; Z90.711 Acquired absence of uterus with remaining cervical stump; I10 Essential (primary) hypertension; Z92.3 Personal history of irradiation; M89.9 Disorder of bone, unspecified; R53.83 Other fatigue; R51 Headache; M25.512 Pain in left shoulder; E78.00 Pure hypercholesterolemia, unspecified; M06.9 Rheumatoid arthritis, unspecified; R10.2 Pelvic and perineal pain; M85.80 Other specified disorders of bone density and structure, unspecified site
CPT/HCPCS: 76830; 85025; 86300; G0463; 82040; 82247; 82310; 82374; 82435; 82565; 82947; 84075; 84132; 84155; 84295; 84450; 84460; 84520; 99212

== ENCOUNTER 2018-11-11 09:01 | Emergency (ER) | payer MEDICARE, OTHER ==
--- NOTE | 2018-11-11 09:04 | ER Report ---
History and Physical Time Seen By MD: 09:03 HPI/ROS CHIEF COMPLAINT: Lower abdominal pain, pain with urination HISTORY OF PRESENT ILLNESS: Patient is an 83-year-old female here with complaints of lower abdominal pain, pain with urination acute onset this morning while at [employer]. Patient does have a history of arthritis in the back but denies prior history of similar abdominal pain. Patient is afebrile, hemodynamically stable at time of evaluation. Patient is nontoxic in appearance. Patient reports intermittent stabbing pain. Patient did have mild lightheadedness but also admits to not eating this morning and not keeping up with fluid intake. REVIEW OF SYSTEMS: Constitutional: No fever, no chills. Eyes: No discharge. ENT: No sore throat. Cardiovascular: No chest pain, no palpitations. Respiratory: No cough, no shortness of breath. Gastrointestinal: + Lower sharp abdominal pains, no nausea or vomiting Genitourinary: Decreased urine output Musculoskeletal: Baseline back pain. Skin: No rashes. Neurological: No headache. Allergies: Coded Allergies: oxycodone (Verified Allergy, Intermediate, 06/29/17) amoxicillin (Verified Allergy, Mild, 06/29/17) prednisone (Verified Allergy, Mild, UNKNOWN, 06/29/17) piroxicam (Verified Allergy, Unknown, GI, 06/29/17) sulindac (Verified Allergy, Unknown, GI, 06/29/17) meloxicam (Verified Adverse Reaction, Severe, NAUSEA/VOMITING, 06/29/17) propoxyphene HCl (Verified Adverse Reaction, Severe, NAUSEA/VOMITING, 06/29/17) valsartan (Verified Adverse Reaction, Severe, NAUSEA/VOMITING, 06/29/17) celecoxib (Verified Adverse Reaction, Mild, N&V, 06/29/17) dipyridamole (Verified Adverse Reaction, Mild, N&V, 06/29/17) doxepin (Verified Adverse Reaction, Mild, N&V, 06/29/17) morphine (Verified Adverse Reaction, Mild, N&V, 06/29/17) orphenadrine (Verified Adverse Reaction, Mild, N&V, 06/29/17) propoxyphene (Verified Adverse Reaction, Mild, N&V, 06/29/17) tramadol (Verified Adverse Reaction, Mild, N&V, 06/29/17) Home Meds Active Scripts Meclizine Hcl (MECLIZINE HCL) 25 Mg Tab.chew, 25 MG PO TID PRN for dizziness, #60 TAB.CHEW 1 Refill Prov:CARLOTTA BILLINGSLEY MD 08/13/18 Levothyroxine Sodium (LEVOTHYROXINE SODIUM) 25 Mcg Tablet, 25 MCG PO QDAY, #90 TAB 3 Refills Prov:CARLOTTA BILLINGSLEY MD 05/14/18 Reported Medications Potassium Gluconate (POTASSIUM) 99 Mg Tablet, 99 MG PO 05/14/18 Glucosamine Sulfate 2KCL (GLUCOSAMINE) 1,000 Mg Tablet, 1000 MG PO QDAY 03/14/18 Vit A/Vit C/Vit E/Zinc/Copper (PRESERVISION AREDS SOFTGEL) 1 Each Capsule, 2 EACH PO, CAPSULE 10/16/17 [place]-3/Dha/Epa/Fish Oil (Fish Oil 1,000 mg Softgel) 1,000 Mg (120 Mg-180 Mg) Capsule 10/16/17 Cyanocobalamin (Vitamin B-12) (Vitamin B12) Unknown Strength Tab.chew 10/16/17 Mu-Vits-Min Th/Lycopene/Lutein (CENTRUM SILVER TABLET) 1 Each Tablet, 1 EACH PO 10/16/17 Aspirin (ASPIRIN) 81 Mg Tab.chew, 81 MG PO QDAY, TAB.CHEW 09/29/17 Atorvastatin Calcium (LIPITOR) 40 Mg Tablet, 1 TAB PO QDAY, TAB 04/26/17 Losartan/Hydrochlorothiazide (HYZAAR 50-12.5 TABLET) 1 Each Tablet, 2 EACH PO QDAY 04/22/17 Discontinued Scripts Gabapentin (GABAPENTIN) 100 Mg Capsule, 1-3 CAP PO QHS PRN for pain, #30 CAPSULE 3 Refills Prov:CARLOTTA BILLINGSLEY MD 08/10/18 Escitalopram Oxalate (ESCITALOPRAM OXALATE) 10 Mg Tablet, 1 TAB PO QDAY, #30 TAB 6 Refills Prov:CARLOTTA BILLINGSLEY MD 05/14/18 Hx Smoking: No Smoking Status: Never Smoker Exposure to Second Hand Smoke?: No Hx Substance Use Disorder: No Hx Alcohol Use: No Constitutional Vital Sign - Last 24 Hours 11/11/18 11/11/18 11/11/18 11/11/18 09:07 09:09 09:21 09:30 Pulse 64 65 Resp 16 B/P (MAP) 176/77 (110) 176/77 166/69 (101) Pulse Ox 94 94 O2 Delivery Room Air 11/11/18 11/11/18 11/11/18 11/11/18 09:35 09:41 10:15 10:30 Pulse 61 58 Resp 14 12 B/P (MAP) 180/74 (109) Pulse Ox 93 100 O2 Flow Rate 2.0 11/11/18 11/11/18 11/11/18 11/11/18 10:35 10:55 11:00 11:15 Pulse 59 61 65 Resp 8 24 12 B/P (MAP) 163/63 (96) Pulse Ox 99 96 11/11/18 11:30 B/P (MAP) 153/66 (95) Intake and Output 11/11/18 11/11/18 11/12/18 15:00 23:00 07:00 Intake Total 800 ml Balance 800 ml Physical Exam General Appearance: The patient is alert, has no immediate need for airway protection and no signs of toxicity. No acute distress Eyes: Pupils equal and round no pallor or injection. ENT, Mouth: Mucous membranes are moist. Respiratory: There are no retractions, lungs are clear to auscultation. Cardiovascular: Regular rate and rhythm. [ ] Gastrointestinal: Abdomen is soft and non tender, no masses, bowel sounds normal. No rebound or guarding Neurological: No focal neurological findings Skin: Warm and dry, no rashes. Musculoskeletal: Neck is supple non tender. Extremities are nontender, nonswollen and have full range of motion. DIFFERENTIAL DIAGNOSIS: After history and physical exam differential diagnosis was considered for abdominal pain including but not limited to appendicitis, cholecystitis, gastritis and urinary tract infection. Medical Decision Making Data Points Result Diagram: 11/11/1892211/11/18922 Laboratory Hematology Test 11/11/18 09:23 11/11/18 09:38 11/11/18 10:27 Red Blood Count 4.69 M/uL (4.17-5.56) Mean Corpuscular Volume 89.2 fL (80.0-96.0) Mean Corpuscular Hemoglobin 29.8 pg (26.0-33.0) Mean Corpuscular Hemoglobin Concent 33.4 g/dL (32.0-36.0) Red Cell Distribution Width 13.7 % (11.5-14.5) Mean Platelet Volume 10.2 fL (7.2-11.1) Neutrophils (%) (Auto) 73.0 % (39.4-72.5) Lymphocytes (%) (Auto) 18.2 % (17.6-49.6) Monocytes (%) (Auto) 6.2 % (4.1-12.4) Eosinophils (%) (Auto) 1.2 % (0.4-6.7) Basophils (%) (Auto) 1.4 % (0.3-1.4) Nucleated RBC Relative Count (auto) 0.0 /100WBC Neutrophils # (Auto) 3.8 K/uL (2.0-7.4) Lymphocytes # (Auto) 1.0 K/uL (1.3-3.6) Monocytes # (Auto) 0.3 K/uL (0.3-1.0) Eosinophils # (Auto) 0.1 K/uL (0.0-0.5) Basophils # (Auto) 0.1 K/uL (0.0-0.1) Nucleated RBC Absolute Count (auto) 0.00 K/uL Sodium Level 139 mmol/L (137-145) Potassium Level 3.3 mmol/L (3.5-5.0) Chloride Level 103 mmol/L (98-107) Carbon Dioxide Level 30 mmol/L (22-31) Blood Urea Nitrogen 16 mg/dl (7-18) Creatinine 0.50 mg/dl (0.52-1.04) Glomerular Filtration Rate Calc > 60.0 Random Glucose 101 mg/dl (75-110) Calcium Level 9.5 mg/dl (8.4-10.2) Total Bilirubin 1.2 mg/dl (0.2-1.3) Aspartate Amino Transf (AST/SGOT) 49 U/L (0-35) Alanine Aminotransferase (ALT/SGPT) 61 U/L (0-56) Alkaline Phosphatase 152 U/L (0-126) Total Protein 7.2 g/dl (6.3-8.2) Albumin 4.4 g/dl (3.5-5.0) Lipase 184 U/L (23-300) Influenza Virus Type A (PCR) Negative (NEGATIVE) Influenza Virus Type B (PCR) Negative (NEGATIVE) Urine Color Yellow Urine Clarity Clear Urine pH 6.0 pH (4.8-9.5) Urine Specific [place] 1.041 Urine Protein Negative mg/dL (NEGATIVE) Urine Glucose (UA) Negative mg/dL (NEGATIVE) Urine Ketones Negative mg/dL (NEGATIVE) Urine Blood Moderate (NEGATIVE) Urine Nitrite Negative (NEGATIVE) Urine Bilirubin Negative (NEGATIVE) Urine Urobilinogen Negative mg/dL (0.2-1.9) Urine Leukocyte Esterase Negative (NEGATIVE) Urine RBC 85 /HPF (0-2/HPF) Urine WBC 2 /HPF (0-5/HPF) Urine Squamous Epithelial Cells Many /LPF (</=FEW) Urine Bacteria Few /HPF (NONE-FEW) Urine Hyaline Casts Few /LPF (NONE-FEW) Urine Mucus Few /HPF (NONE-FEW) Chemistry Test 11/11/18 09:23 11/11/18 09:38 11/11/18 10:27 White Blood Count 5.2 k/uL (4.5-11.0) Red Blood Count 4.69 M/uL (4.17-5.56) Hemoglobin 14.0 g/dL (12.0-16.0) Hematocrit 41.8 % (34.0-47.0) Mean Corpuscular Volume 89.2 fL (80.0-96.0) Mean Corpuscular Hemoglobin 29.8 pg (26.0-33.0) Mean Corpuscular Hemoglobin Concent 33.4 g/dL (32.0-36.0) Red Cell Distribution Width 13.7 % (11.5-14.5) Platelet Count 115 K/uL (150-450) Mean Platelet Volume 10.2 fL (7.2-11.1) Neutrophils (%) (Auto) 73.0 % (39.4-72.5) Lymphocytes (%) (Auto) 18.2 % (17.6-49.6) Monocytes (%) (Auto) 6.2 % (4.1-12.4) Eosinophils (%) (Auto) 1.2 % (0.4-6.7) Basophils (%) (Auto) 1.4 % (0.3-1.4) Nucleated RBC Relative Count (auto) 0.0 /100WBC Neutrophils # (Auto) 3.8 K/uL (2.0-7.4) Lymphocytes # (Auto) 1.0 K/uL (1.3-3.6) Monocytes # (Auto) 0.3 K/uL (0.3-1.0) Eosinophils # (Auto) 0.1 K/uL (0.0-0.5) Basophils # (Auto) 0.1 K/uL (0.0-0.1) Nucleated RBC Absolute Count (auto) 0.00 K/uL Glomerular Filtration Rate Calc > 60.0 Calcium Level 9.5 mg/dl (8.4-10.2) Total Bilirubin 1.2 mg/dl (0.2-1.3) Aspartate Amino Transf (AST/SGOT) 49 U/L (0-35) Alanine Aminotransferase (ALT/SGPT) 61 U/L (0-56) Alkaline Phosphatase 152 U/L (0-126) Total Protein 7.2 g/dl (6.3-8.2) Albumin 4.4 g/dl (3.5-5.0) Lipase 184 U/L (23-300) Influenza Virus Type A (PCR) Negative (NEGATIVE) Influenza Virus Type B (PCR) Negative (NEGATIVE) Urine Color Yellow Urine Clarity Clear Urine pH 6.0 pH (4.8-9.5) Urine Specific [place] 1.041 Urine Protein Negative mg/dL (NEGATIVE) Urine Glucose (UA) Negative mg/dL (NEGATIVE) Urine Ketones Negative mg/dL (NEGATIVE) Urine Blood Moderate (NEGATIVE) Urine Nitrite Negative (NEGATIVE) Urine Bilirubin Negative (NEGATIVE) Urine Urobilinogen Negative mg/dL (0.2-1.9) Urine Leukocyte Esterase Negative (NEGATIVE) Urine RBC 85 /HPF (0-2/HPF) Urine WBC 2 /HPF (0-5/HPF) Urine Squamous Epithelial Cells Many /LPF (</=FEW) Urine Bacteria Few /HPF (NONE-FEW) Urine Hyaline Casts Few /LPF (NONE-FEW) Urine Mucus Few /HPF (NONE-FEW) Urinalysis Test 11/11/18 10:27 Urine Color Yellow Urine Clarity Clear Urine pH 6.0 pH (4.8-9.5) Urine Specific [place] 1.041 Urine Protein Negative mg/dL (NEGATIVE) Urine Glucose (UA) Negative mg/dL (NEGATIVE) Urine Ketones Negative mg/dL (NEGATIVE) Urine Blood Moderate (NEGATIVE) Urine Nitrite Negative (NEGATIVE) Urine Bilirubin Negative (NEGATIVE) Urine Urobilinogen Negative mg/dL (0.2-1.9) Urine Leukocyte Esterase Negative (NEGATIVE) Urine RBC 85 /HPF (0-2/HPF) Urine WBC 2 /HPF (0-5/HPF) Urine Squamous Epithelial Cells Many /LPF (</=FEW) Urine Bacteria Few /HPF (NONE-FEW) Urine Hyaline Casts Few /LPF (NONE-FEW) Urine Mucus Few /HPF (NONE-FEW) EKG/Imaging Imaging Location: [facility] [place] Patient: Kassidy Stearns : 1935 Visit/Account:[id number] Date of Sevice: 11/11/2018 CT ABDOMEN PELVIS W/ CON HISTORY: lower abd pain TECHNIQUE: CT abdomen and pelvis 75 cc of Isovue 370 IV. One of the following dose optimization techniques was utilized in the performance of this exam: automated exposure control; adjustment of the mA and/or kV according to the pa tient's size; or use of an iterative reconstruction technique. Specific details can be referenced in the facility's radiology CT exam operational policy. COMPARISON: CT abdomen and pelvis 04/24/2018 FINDINGS: Liver/gallbladder: Intrahepatic bile duct dilatation is seen, slightly increased compared to 07/10/2014. There are postoperative changes from a cholecystectomy. Common bile duct is normal. Spleen: Normal. Adrenals: Normal. Pancreas: Normal enhancement without evidence of mass. Kidneys/: Right and left kidney demonstrate normal enhancement. There is no hydronephrosis. Both ureters are normal. There are phleboliths in the right and left hemipelvis, unchanged. Pelvis: Urinary bladder is normal. There are postoperative changes from a hysterectomy. GI: There are postoperative changes with anastomosis in the distal colon. Small bowel and stomach are normal. Vessels/spaces/nodes: There is no intraperitoneal or retroperitoneal adenopathy. Bones/soft tissues: There are no lytic or blastic bone lesions. Soft tissues are normal. Visualized lung bases: Clear. IMPRESSION: 1. No acute pathology identified in the abdomen or pelvis. 2. Postoperative changes from prior cholecystectomy, stable. 2. Mild intrahepatic bile duct dilatation, slightly increased from 07/10/2014. 4. Postoperative changes from hysterectomy. 5. Postoperative changes with anastomosis seen in the sigmoid colon. ED Course/Re-evaluation ED Course Patient is an 83-year-old female here with complaints of lower abdominal pain which has since subsided. Patient admits to not keeping up with fluids, not eating this morning. Urinalysis did have blood present however no infectious signs. Labs are otherwise unremarkable. Patient was given IV fluids for hydration and was tolerating oral intake without issues. Denies blood in the stools. Patient was advised to push hydration. Close PCP follow-up recommended. CT imaging of the abdomen and pelvis showed no acute findings. Return precautions were provided Decision to Disposition Date: Nov 11, 2018 Decision to Disposition Time: 10:48 Depart Departure Latest Vital Signs Vital Signs Date Time Temp Pulse Resp B/P (MAP) Pulse Ox O2 Delivery O2 Flow Rate FiO2 11/11/18 11:30 153/66 (95) 11/11/18 11:15 65 12 11/11/18 10:55 96 11/11/18 09:41 2.0 11/11/18 09:09 Room Air Impression: Primary Impression: Abdominal pain Condition: Improved Disposition: HOME OR SELF-CARE Patient Instructions: Abdominal Pain (ED) Additional Instructions: Please drink plenty of water. Please follow-up with your family doctor in the next 24-48 hours. Please return immediately if you to have worsening abdominal pain, nausea, vomiting, fevers or chills, inability to keep down food or fluids. JESS SALMERON DO Nov 11, 2018 09:04
[2018-11-11] MEDS ORDERED: NS(*) 0.9% 1000 ML BAG 1,000 ML IV ONE (09:19)
[2018-11-11] MEDS ORDERED: fentaNYL CITR 100 MCG/2 ML AMP IVP ONE (09:20)
[2018-11-11 09:35] LABS: PLATELET COUNT, AUTOMATED 115 K/uL (150-450)
--- NOTE | 2018-11-11 10:25 | RADIOLOGY IMAGING REPORT ---
FACILITY: [facility] PATIENT NAME: Kassidy Stearns : 1935 MR: [id number] V: [id number] EXAM DATE: ORDERING PHYSICIAN: JESS SALMERON TECHNOLOGIST: Location: [facility] - [place], [place] Patient: Kassidy Stearns : 1935 Visit/Account:[id number] Date of Sevice: 11/11/2018 CT ABDOMEN PELVIS W/ CON HISTORY: lower abd pain TECHNIQUE: CT abdomen and pelvis 75 cc of Isovue 370 IV. One of the following dose optimization delmy hniques was utilized in the performance of this exam: automated exposure control; adjustment of the m A and/or kV according to the patient's size; or use of an iterative reconstruction technique. Specif ic details can be referenced in the facility's radiology CT exam operational policy. COMPARISON: CT abdomen and pelvis 04/24/2018 FINDINGS: Liver/gallbladder: Intrahepatic bile duct dilatation is seen, slightly increased compared to 07/10/20 14. There are postoperative changes from a cholecystectomy. Common bile duct is normal. Spleen: Normal. Adrenals: Normal. Pancreas: Normal enhancement without evidence of mass. Kidneys/: Right and left kidney demonstrate normal enhancement. There is no hydronephrosis. Both u reters are normal. There are phleboliths in the right and left hemipelvis, unchanged. Pelvis: Urinary bladder is normal. There are postoperative changes from a hysterectomy. GI: There are postoperative changes with anastomosis in the distal colon. Small bowel and stomach ar e normal. Vessels/spaces/nodes: There is no intraperitoneal or retroperitoneal adenopathy. Bones/soft tissues: There are no lytic or blastic bone lesions. Soft tissues are normal. Visualized lung bases: Clear. IMPRESSION: 1. No acute pathology identified in the abdomen or pelvis. 2. Postoperative changes from prior cholecystectomy, stable. 2. Mild intrahepatic bile duct dilatation, slightly increased from 07/10/2014. 4. Postoperative changes from hysterectomy. 5. Postoperative changes with anastomosis seen in the sigmoid colon. Report Dictated By: Angelo Patiño at 11/11/2018 10:14 AM Report E-Signed By: Angelo Patiño at 11/11/2018 10:21 AM WSN:[id number]
[2018-11-11 11:30] VITALS: BP 153/66
== END 2018-11-11 11:40 | disposition home or self-care (01) ==
LOC: ER 09:23
DX: R10.30 Lower abdominal pain, unspecified (principal)
CPT/HCPCS: 74177; 81001; 83690; 85025; 87502; 96361; 96374; 99284; J3010; J7030; 82040; 82247; 82310; 82374; 82435; 82565; 82947; 84075; 84132; 84155; 84295; 84450; 84460; 84520; Q9967

== ENCOUNTER 2018-11-27 01:11 | Inpatient (IN) | payer MEDICARE, OTHER ==
--- NOTE | 2018-11-26 10:43 | LEVENE H&P ---
DATE OF ADMISSION: November 27, 2018 IDENTIFICATION/CHIEF COMPLAINT Kassidy is an 83-year-old woman with a chief complaint of left shoulder pain. HISTORY OF PRESENT ILLNESS Patient has a longstanding history of cuff tear arthropathy progressively painful and debilitating, refractory to conservative care. Surgery is indicated to relieve pain after failure of nonoperative measures. PAST MEDICAL HISTORY 1. History of MD, status post stent. 2. Hypertension, controlled on medication. PAST SURGICAL HISTORY 1. Tonsillectomy. 2. Appendectomy. 3. Multiple spine operations. 4. Hemorrhoids. 5. Cholecystectomy. 6. Cardiac stent. 7. Carpal tunnel release. 8. Elbow nerve release. ALLERGIES She is INTOLERANT of CODEINE, DARVOCET, ULTRA, DOXEPIN, MORPHINE, DIPYRIDAMOLE, DARVON, NORGESIC FORTE, CELEBREX, PERCOCET, DIOVAN and PREDNISONE. VICODIN also causes nausea. CURRENT MEDICATIONS 1. Baby aspirin a day. 2. Levothyroxine 25 mcg a day. 3. Meclizine as needed. 4. Atorvastatin 40 mg p.o. b.i.d. 5. Losartan/Hydrochlorothiazide 50/12.5 mg p.o. q. day. 6. Citalopram 10 mg p.o. q. day. 7. Variety of vitamins. FAMILY HISTORY Noncontributory. SOCIAL HISTORY Negative for tobacco and alcohol use. REVIEW OF SYSTEMS Negative. PHYSICAL EXAMINATION GENERAL: This is an elderly female who appears her stated age. HEENT: Normocephalic, atraumatic. NECK: Supple. LUNGS: Clear. HEART: Regular ABDOMEN: Soft. ORTHOPEDIC EXAMINATION Left shoulder has limited range of motion and is very painful and there is crepitus throughout. She is weak on forward elevation, abduction and external rotation. Internal rotation is normal within a comfortable range. She is tender in the anterior and posterior joint line. Radiographs demonstrate end- stage cuff tear arthropathy. ASSESSMENT Left shoulder end-stage rotator cuff tear arthropathy, refractory to conservative care. PLAN Per patient's request, we will proceed with reverse total shoulder arthroplasty and concomitant long-head biceps tenodesis. The nature of the procedure, the risks, benefits and the anticipated rehabilitative course were reviewed. Risks include, but are not limited to, , major medical or anesthetic complication, infection, neurovascular injury, blood transfusion, stiffness, scarring, fracture, tendon rupture, instability, implant loosening, migration or failure, persistent or recurrent pain, need for additional surgery and other unforeseen. She understands and wishes to proceed. A signed permit is placed in the chart. No guarantees are given or implied. LIZA
[2018-11-26 15:30] LABS: INR 0.97
[2018-11-27] VITALS (7 sets, daily range): BP systolic 127–147; BP diastolic 51–62
[~2018-11-27] VITALS: Ht 157.5 cm; Wt 65.3 kg
[~2018-11-27 01:11] MED LIST changes: -CYAN250013; +CYAN250013 PO; +[UNRECOGNIZED DRUG - CODE] PO
[2018-11-27] MEDS ORDERED: fentaNYL CITR 100 MCG/2 ML AMP ONE (11:01)
[2018-11-27] MEDS ORDERED: LIDOCAINE 2% IV 100 MG/5ML SYR ONE (11:02)
[2018-11-27] MEDS ORDERED: PROPOFOL EMUL(*) 10MG/ML 20 ML 20 ML ONE (11:05)
[2018-11-27] MEDS ORDERED: DEXAMETHASONE SOD 4 MG/ML VIAL ONE (11:07)
[2018-11-27] MEDS ORDERED: DEXAMETHASONE SOD PHOS 10MG/ML ONE (11:07)
[2018-11-27] MEDS ORDERED: ROPIVACAINE 0.5% 20 ML VIAL ONE (11:07)
[2018-11-27] MEDS ORDERED: ROPIVACAINE 0.2% 20 ML VIAL ONE (11:07)
[2018-11-27] MEDS ORDERED: ROCURONIUM BROM 10 MG/ML 10 ML ONE (12:34)
[2018-11-27] MEDS ORDERED: ACETAMINOPHEN 500 MG TAB PO ONE (13:00)
[2018-11-27] MEDS ORDERED: MIDAZOLAM 2 MG/2 ML VIAL IVP PRN (13:00)
[2018-11-27] MEDS ORDERED: ROPIVACAINE/EPI/CLONIDINE/KET 50 ML SYRINGE INJ ONE (13:00)
[2018-11-27] MEDS ORDERED: FAMOTIDINE 20 MG TAB PO ONE (13:00)
[2018-11-27] MEDS ORDERED: LIDOCAINE/SOD BICARB 8.4% SYR ID ONE (13:00)
[2018-11-27] MEDS ORDERED: NORMOSOL R SOLN(*) 1000 ML BAG 1,000 ML IV PRN ×2 (13:00→15:10)
[2018-11-27] MEDS ORDERED: ceFAZolin(*) 1 GM VIAL 1 GM in NS(*) 0.9% 100 ML ADDVANT BAG 100 ML IVPB ONE (13:00)
[2018-11-27] MEDS ORDERED: PREGABALIN 75 MG CAPSULE PO ONE (13:00)
[2018-11-27] MEDS ORDERED: TRANEXAMIC AC 1000 MG/10ML SDV 1,000 MG in DEXTROSE 5% 50 ML BAG 50 ML IV ONE (13:00)
[2018-11-27] MEDS ORDERED: SUGAMMADEX SOD 200 MG/2 ML SDV ONE (13:29)
[2018-11-27] MEDS ORDERED: ONDANSETRON 4 MG/2 ML VIAL ONE (14:19)
[2018-11-27] MEDS ORDERED: diphenhydrAMINE 50 MG/ML VIAL IVP PRN (15:10)
[2018-11-27] MEDS ORDERED: FLUSH 10 ML SYR IVP PRN (15:10)
[2018-11-27] MEDS ORDERED: PROMETHAZINE 25 MG/ML 1 ML AMP IVP PRN (15:10)
[2018-11-27] MEDS ORDERED: ACETAMINOPHEN 325 MG TAB PO PRN (15:10)
[2018-11-27] MEDS ORDERED: BISACODYL 10 MG SUPP PR PRN (15:10)
[2018-11-27] MEDS ORDERED: BENZOCAINE/MENTHOL 1 EACH LOZG PO PRN (15:10)
[2018-11-27] MEDS ORDERED: diphenhydrAMINE 25 MG CAP PO PRN (15:10)
[2018-11-27] MEDS ORDERED: MAGNESIUM HYDROXIDE* 30ML UDCP PO PRN (15:10)
[2018-11-27] MEDS ORDERED: ZOLPIDEM TARTRATE 5 MG TAB PO PRN (15:10)
--- NOTE | 2018-11-27 15:33 | RADIOLOGY IMAGING REPORT ---
FACILITY: [facility] [place] PATIENT NAME: Kassidy Stearns : 1935 MR: [id number] V: [id number] EXAM DATE: ORDERING PHYSICIAN: ASHANTI CARTWRIGHT TECHNOLOGIST: Location: [facility] [place] Patient: Kassidy Stearns : 1935 Visit/Account:[id number] Date of Sevice: 11/27/2018 Exam type: SHOULDER 1 VIEW LEFT History: Postoperative left shoulder arthroplasty Comparison: 05/14/2018. Findings: Postoperative changes are noted from left shoulder arthroplasty without hardware complication. Surgi ninoska clips overlie the left axilla. Patient is osteopenic. IMPRESSION: 1. Postoperative changes are noted from left shoulder arthroplasty without hardware complication. Report Dictated By: Matt Hollingsworth MD at 11/27/2018 3:27 PM Report E-Signed By: Matt Hollingsworth MD at 11/27/2018 3:28 PM WSN:[email or web address]
--- NOTE | 2018-11-27 15:42 | OPERATIVE REPORT 1 ---
EVENT DATE: November 27, 2018 SURGEON: Andrea Jones MD ANESTHESIOLOGIST: Ayan George MD ANESTHESIA: General plus scalene. MEDICAL SCIENCE LIAISON: Arden Vasquez PA-C PREOPERATIVE DIAGNOSES 1. Left shoulder chronic massive, irreparable cuff tear with early cuff tear arthropathy. 2. Disease of the long head of the biceps. POSTOPERATIVE DIAGNOSES 1. Left shoulder chronic massive, irreparable cuff tear with early cuff tear arthropathy. 2. Disease of the long head of the biceps. PROCEDURES PERFORMED 1. Left reverse total shoulder arthroplasty. 2. Tenodesis of the long head of the biceps tendon. ESTIMATED BLOOD LOSS 200 mL DRAINS None. SPECIMENS None. COMPLICATIONS None apparent. IMPLANTS USED Mill33 system with a ReUnion reverse shoulder arthroplasty, a 28 mm glenoid baseplate/metaglene, a 6.5 mm, 24 length center screw, two peripheral 4.5 locking screws, a concentric 32 mm glenosphere with a 2 mm offset, a size 11 modular humeral ReUnion TSA stem with a 4 mm thickness humeral cup, and a 4 mm humeral insert. Polyethylene is X3. INDICATIONS Kassidy has intractable debilitating pain and an irreparable massive cuff tear and developing cuff tear arthropathy. Surgery is indicated to relieve symptoms after failure of nonoperative measures. DESCRIPTION OF PROCEDURE Patient is taken to the operating room and placed supine on the operating table. General anesthesia is induced after a scalene block is placed by the anesthesiologist. Antibiotics and TXA are administered IV. Patient is positioned in the beach chair position. Neck is secured in the neutral position. All bony prominences and superficial nerves are well padded. Left shoulder girdle and upper extremity are prepped and draped free in the usual sterile fashion for shoulder arthroplasty. Curvilinear incision made over the deltopectoral interval, carried down through the skin and subcutaneous tissue. Cephalic vein is taken laterally with the deltoid, and the deltopectoral interval is bluntly developed. Clavipectoral fascia is released along the lateral aspect of the conjoined tendon, and dissection is carried underneath the cuff through the bursal scar. The atrophied, irreparable cuff tear is noted. The tenotomy/arthrotomy is made 1.5 cm medial to the insertion of the subscapularis onto the lesser. Subscapularis is tagged for later anatomic reattachment. Anterior humeral circumflex vessels are ligated at the inferior aspect. Biceps is tenodesed with a [id number] of #2 Ethibond suture to the upper border of the pectoralis tendon. Remainder of the biceps is clipped out and taken up into the joint. The arthrotomy/tenotomy is completed, and capsule is released off the inferior aspect of the humeral head as this is progressively extended and externally rotated. Osteophytes are resected. Song is made at a 135-degree angle aiming for the [place] bare area to replicate the patient's [place] version. Osteotomy is made with an oscillating saw. Humeral head is saved for later grafting of the stem. The humerus is then levered posteriorly, and the glenoid labrum is excised circumferentially. A Roe is used to lift the subscapularis off anteriorly. A 360-degree release is accomplished taking care to avoid injury to the neurovascular structures coursing below. The aiming device for the glenoid baseplate is placed so that the inferior margin is directly at the inferior margin of the bony glenoid, and the guiding center pin is drilled. Reaming is performed to get nice punctate bleeding bone without distorting the subchondral plate, and then the metaglene is inserted, held firmly in position, and the center screw is advanced and locked into position. Superior and inferior locking screws of variable angles are inserted. The upper one is aimed for the base of the coracoid, the lower one for the lateral column of the scapula. Satisfactory length and fixation are achieved on these two due to her tiny size. Anterior and posterior screws are not feasible. Surfaces are copiously lavaged. Periphery is cleared of soft tissue, and a 32 mm, +2 offset glenosphere is impacted onto the [place] taper and seats nicely. Attention is turned to humeral preparation. Starting awl is started at the superior and lateralmost aspect of the cut down the canal. Reaming is performed up to size 11 where endosteal contact is obtained. The broach is then inserted following the version of the cut, and trial reduction is performed with various cup sizes. The minimum 4 x 4 for the cup and the insert snaps in nicely and has good tension and security with stable range of motion and no tendency to dissociate. This is then removed, and the surfaces are copiously lavaged. The actual stem is impacted into position with a bit of medial bone grafting from the humeral head to increase bone density and facilitate ingrowth. The cup and liner are then assembled and impacted into the stem to complete the humeral side. This is then reduced. Soft tissue tension is tested again, felt to be ideal. Wound is copiously lavaged. Hemostasis is assured. Pain cocktail is infiltrated throughout. The subscapularis is reapproximated anatomically with the previously placed Ethibond as well as additional [id number] #2 Ethibond suture. Deltopectoral interval is allowed to fold back together. Derm is closed with 3-0 Vicryl, skin with surgical shelley. Xeroform is applied for a dry, sterile dressing, compression wrap, and an UltraSling. Patient is awakened from anesthesia, taken to the recovery room in stable condition having tolerated the procedure well. PLAN Standard reverse TSA rehab protocol. [facility]
[2018-11-27] MEDS ORDERED: MECLIZINE HCL 25 MG TAB PO PRN (16:15)
--- NOTE | 2018-11-27 16:24 | Hospitalist Consultation ---
History of Present Illness Requesting Physician Dr. Jones Reason for Consult Medical Management Chief Complaint s/p left shoulder replacement History of Present Illness She was admitted s/p left shoulder replacement. It is reported the surgery went well and without complication. History Problems: (1) BPV (benign positional vertigo) Status: Chronic (2) CAD (coronary artery disease) Status: Chronic (3) Hypothyroidism Status: Chronic (4) Hyperlipidemia Status: Chronic (5) Hypertension Status: Chronic Home Meds Active Scripts Meclizine Hcl (MECLIZINE HCL) 25 Mg Tab.chew, 25 MG PO TID PRN for dizziness, #60 TAB.CHEW 1 Refill Prov:CARLOTTA BILLINGSLEY MD 08/13/18 Levothyroxine Sodium (LEVOTHYROXINE SODIUM) 25 Mcg Tablet, 25 MCG PO QDAY, #90 TAB 3 Refills Prov:CARLOTTA BILLINGSLEY MD 05/14/18 Reported Medications Methylsulfonylmethane (MSM) 1,000 Mg Capsule, 1000 MG PO DAILY, CAPSULE 11/19/18 Potassium Gluconate (POTASSIUM) 99 Mg Tablet, 99 MG PO DAILY 05/14/18 Glucosamine Sulfate 2KCL (GLUCOSAMINE) 1,000 Mg Tablet, 1000 MG PO QDAY 03/14/18 Vit A/Vit C/Vit E/Zinc/Copper (PRESERVISION AREDS SOFTGEL) 1 Each Capsule, 2 EA CH PO DAILY, CAPSULE 10/16/17 Cyanocobalamin (Vitamin B-12) (Vitamin B12) Unknown Strength Tab.chew, 1000 MCG PO DAILY 10/16/17 Mu-Vits-Min Th/Lycopene/Lutein (CENTRUM SILVER TABLET) 1 Each Tablet, 1 EACH PO 10/16/17 Aspirin (ASPIRIN) 81 Mg Tab.chew, 81 MG PO QDAY, TAB.CHEW 09/29/17 Atorvastatin Calcium (LIPITOR) 40 Mg Tablet, 1 TAB PO QDAY, TAB 04/26/17 Losartan/Hydrochlorothiazide (HYZAAR 50-12.5 TABLET) 1 Each Tablet, 1 EACH PO BID 04/22/17 Discontinued Reported Medications Escitalopram Oxalate (ESCITALOPRAM OXALATE) 10 Mg Tablet, 10 MG PO QDAY, TAB 11/19/18 Allergies: Coded Allergies: oxycodone (Verified Allergy, Intermediate, 06/29/17) prednisone (Verified Allergy, Mild, UNKNOWN, 06/29/17) piroxicam (Verified Allergy, Unknown, GI, 06/29/17) sulindac (Verified Allergy, Unknown, GI, 06/29/17) propoxyphene HCl (Verified Adverse Reaction, Severe, NAUSEA/VOMITING, 06/29/17) valsartan (Verified Adverse Reaction, Severe, NAUSEA/VOMITING, 06/29/17) celecoxib (Verified Adverse Reaction, Mild, N&V, 06/29/17) dipyridamole (Verified Adverse Reaction, Mild, N&V, 06/29/17) doxepin (Verified Adverse Reaction, Mild, N&V, 06/29/17) morphine (Verified Adverse Reaction, Mild, N&V, 06/29/17) orphenadrine (Verified Adverse Reaction, Mild, N&V, 06/29/17) propoxyphene (Verified Adverse Reaction, Mild, N&V, 06/29/17) tramadol (Verified Adverse Reaction, Mild, N&V, 06/29/17) Patient History: FH: arthritis FATHER, , Age:81 FH: cancer FATHER, , Age:81 MOTHER, , Age:62 Hx Smoking: No Smoking Status: Never Smoker Exposure to Second Hand Smoke?: No Caffeine/Cups Per Day: NONE Hx Alcohol Use: No Hx Substance Use Disorder: No Social Drug Use: Never Review of Systems All Systems Reviewed/Normal: Yes, Except as Noted Exam Vital Signs Vital Signs Date Time Temp Pulse Resp B/P (MAP) Pulse Ox O2 Delivery O2 Flow Rate FiO2 11/27/18 15:30 67 16 95 11/27/18 10:35 98.1 134/61 (85) Room Air General Appearance: Alert, Awake, No Acute Distress, Afebrile Neuro: No Gross deficits Cardiovascular: Regular Rate and Rhythm Respiratory: No Respiratory Distress, Clear to Auscultation GI: Abd Soft and Non-Tender Psych: Alert & Oriented X3, Appropriate Mood & Affect Assessment and Plan Problems: (1) Status post replacement of left shoulder joint Status: Acute Assessment & Plan: Followed by Dr. Jones. (2) Hypertension Status: Chronic Assessment & Plan: She is on chronic treatment with Losartan and Hydrochlorothiazide. Losartan has been restarted with hold parameters. (3) Hypothyroidism Status: Chronic Assessment & Plan: She is on chronic treatment with Levothyroxine. (4) Hyperlipidemia Status: Chronic Assessment & Plan: She is on chronic treatment with Atorvastatin. (5) CAD (coronary artery disease) Status: Chronic Assessment & Plan: She is on chronic treatment with baby aspirin. This will be resumed tomorrow. She has coronary stent and MA history in 2011. (6) BPV (benign positional vertigo) Status: Chronic Assessment & Plan: She is on chronic treatment with Meclizine as needed. Venous Thromboembolism Antithrombotics Is Pt On Any Antithrombotics?: No QUEENIE RODRIGEZ Nov 27, 2018 16:24
[2018-11-27] MEDS: IBUPROFEN 800 MG TAB PO SCH (17:00)
[2018-11-27] MEDS: ceFAZolin(*) 1 GM VIAL 1 GM in NS(*) 0.9% 100 ML ADDVANT BAG 100 ML IVPB SCH (20:47)
[2018-11-28] MEDS: IBUPROFEN 800 MG TAB PO SCH ×2 (00:35→09:24)
[2018-11-28 03:29] VITALS: BP 136/54
[2018-11-28] MEDS: DIAZEPAM 5 MG TAB PO PRN ×2 (03:43→11:09)
[2018-11-28] MEDS: ACETAMINOPHEN 500 MG TAB PO PRN ×2 (03:43→11:09)
[2018-11-28] MEDS: ceFAZolin(*) 1 GM VIAL 1 GM in NS(*) 0.9% 100 ML ADDVANT BAG 100 ML IVPB SCH (05:23)
[2018-11-28] MEDS ORDERED: LEVOTHYROXINE SOD 0.025 MG TAB PO SCH (06:00)
[2018-11-28 07:15] VITALS: BP 135/53
[2018-11-28] MEDS ORDERED: ASPIRIN 81 MG CHEW PO SCH (09:00)
[2018-11-28] MEDS ORDERED: ATORVASTATIN 40 MG TAB PO SCH (09:00)
[2018-11-28] MEDS ORDERED: LOSARTAN POTASSIUM 50 MG TAB PO SCH (09:00)
[2018-11-28] MEDS ORDERED: ceFAZolin(*) 1 GM VIAL 1 GM in NS(*) 0.9% 100 ML ADDVANT BAG 100 ML IVPB SCH (11:00)
--- NOTE | 2018-11-28 11:10 | Hospitalist Progress Note ---
Subjective Progress Notes Subjective She was admitted after shoulder replacement. She has no complaints this morning. She had no acute events overnight. Patient Complains of: Cardiovascular: No: Chest Pain Respiratory: No: Shortness of Breath Physical Exam Vital Signs Date Time Temp Pulse Resp B/P (MAP) Pulse Ox O2 Delivery O2 Flow Rate FiO2 11/28/18 09:37 85 11/28/18 07:58 Nasal Cannula 1.0 11/28/18 07:15 98.0 16 135/53 (80) 11/27/18 19:50 55 Intake and Output 11/28/18 07:00 Intake Total 1590 ml Balance 1590 ml Intake Oral 240 ml IV Total 1350 ml # Voids 1 General Appearance: Alert, Awake, No Acute Distress, Afebrile Neuro: No Gross deficits Cardiovascular: Regular Rate and Rhythm Respiratory: No Respiratory Distress, Clear to Auscultation GI: Soft and Non-Tender Psych: Alert & Oriented X3, Appropriate Mood & Affect Assessment and Plan Problems: (1) Status post replacement of left shoulder joint Status: Acute Assessment & Plan: Followed by Dr. Jones. (2) Hypertension Status: Chronic Assessment & Plan: She is on chronic treatment with Losartan and Hydrochlorothiazide. Losartan has been restarted with hold parameters. (3) Hypothyroidism Status: Chronic Assessment & Plan: She is on chronic treatment with Levothyroxine. (4) Hyperlipidemia Status: Chronic Assessment & Plan: She is on chronic treatment with Atorvastatin. (5) CAD (coronary artery disease) Status: Chronic Assessment & Plan: She is on chronic treatment with baby aspirin. This will be resumed tomorrow. She has coronary stent and [place] history in 2011. (6) BPV (benign positional vertigo) Status: Chronic Assessment & Plan: She is on chronic treatment with Meclizine as needed. Exam Sepsis Risk: No Definite Risk QUEENIE RODRIGEZ Nov 28, 2018 11:10
[2018-11-28 11:14] VITALS: BP 144/52
[2018-11-28 11:47] VITALS: Ht 157.5 cm; Wt 65.3 kg
--- NOTE | 2018-11-28 12:16 | NUR ---
Occupational Therapy Impression Pt alert and agreeable to OT tx after finishing breakfast. Family present and involved in all education. Family plans to assist with all ADLs/IADLs upon discharge (inclu. nikolas hose). Reviewed precautions, wear/fit of sling, ther ex, ADLs, and ice/pain management. Pt reporting extreme pain in ther ex per protocol. Extensive discussion regarding altering ther ex and managing pain. Nursing aware of pain concerns and addressing. Pt and family with no further questions/concerns at end of tx session. Pt ready for discharge when medically appropriate. Plan to initiate outpatient PT Monday. Appt has already been arranged. Occupational Therapy Goals Patient's Goal
--- NOTE | 2018-11-28 13:16 | Medical Nutrition Therapy ---
Nutrition Anthropometrics Height (Inches): 62.00 Height (Calculated Centimeters: 157.219382 Weight (Pounds): 144 Weight (Calculated Kilograms): 65.346 Jose G Nutrition Score: Adequate Jose G Nutrition Risk Score: 19 Dietary Referral Nutrition Risk Factors: Nutrition Risk Comment: Physical Findings Physical Appearance: Overweight BMI 25-29 Skin Appearance Skin Appearance: Edema Edema Location Modifier: Both Edema Location: Foot Type of Edema: Degree of Edema: Gastrointestinal Symptoms GI Symtoms: Nausea Tube Present: Bowel Sounds: Recent Bowel Pattern: Stool Characteristics: Nutritional Diagnosis Nutritional Risk Acuity 2: Unintended Wt Loss >5%/mo Nutritional Risk Acuity 4: Good Appetite Past Medical History: Hx of cancer, SPV, HTN, CAD, hypothyroid. Nutritional Acuity: 2-Moderate Nutrition Diagnosis: Involuntary Wt. Loss Nutrition Etiology: Physiological Causes Nutrition Problem/Etiology/Sym: Involuntary wt. loss related to physiological causes as evidenced by dx of cancer and involuntary weight loss of 3kg in 1 month. Energy Requirement: 1628 (MSJ, 1.1 TEF, AF 1.4) Protein Requirement: 65 (1g/kg of BW) Fluid Requirement: 1628 (1 kcal/mL) Diet Type: Regular Nutrition Intervention: Cont diet as ordered, Encourage intake Nutrition Monitoring & Eval Nutrition Goals: Eat 50-100% Meal, Drink > 1500 cc/day Nutrition Follow-Up: Good Intake Nutrition Monitoring: Pt consuming 100% of CINTHYA meals. -LIZETTE SOTO Patient Assessment Time: [address] Assessment Type: RD Assessment Patient Nutrition Acuity: 2-Moderate Follow Up Date: Nov 30, 2018 Nutritional Comment: Pt admitted for left shoulder replacement. Pt had a hx of BPV, HTN, CAD, cancer, hypothyroid. Pt has been consuming 100% of CINTHYA Diet. Pt has lost 6.6lbs in the past 50 days. -LESLIE REYNAGA Nov 28, 2018 13:11
[2018-11-28] MEDS ORDERED: APAP/HYDROCODONE 325/7.5 TAB PO PRN (13:30)
[2018-11-28 15:16] VITALS: BP 132/52
== END 2018-11-28 15:40 | disposition home or self-care (01) | DRG 483 ==
LOC: OR 01:11 → INTOOBSV 16:00 → OBSVTOIN 16:00 → MED 16:00
PROVIDERS: ADMIT Orthopaedic Surgery; ATTEND Orthopaedic Surgery
PROC: 0RRK00Z Replacement of Left Shoulder Joint with Reverse Ball and Socket Synthetic Substitute, Open Approach (ICD-10-PCS; principal; 2018-11-27 12:34)
PROC: 0LS40ZZ Reposition Left Upper Arm Tendon, Open Approach (ICD-10-PCS; 2018-11-27 12:34)
DX: M19.012 Primary osteoarthritis, left shoulder (principal); M75.122 Complete rotator cuff tear or rupture of left shoulder, not specified as traumatic; M67.814 Other specified disorders of tendon, left shoulder; I10 Essential (primary) hypertension; G89.29 Other chronic pain; G47.33 Obstructive sleep apnea (adult) (pediatric); I25.10 Atherosclerotic heart disease of native coronary artery without angina pectoris; E03.9 Hypothyroidism, unspecified; E78.5 Hyperlipidemia, unspecified; F32.9 Major depressive disorder, single episode, unspecified; M79.7 Fibromyalgia; Z88.5 Allergy status to narcotic agent; Z88.8 Allergy status to other drugs, medicaments and biological substances; Z88.6 Allergy status to analgesic agent; I25.2 Old myocardial infarction; Z90.49 Acquired absence of other specified parts of digestive tract; Z95.1 Presence of aortocoronary bypass graft; Z85.3 Personal history of malignant neoplasm of breast
CPT/HCPCS: 36415; 76942; 85610; 86850; 86900; 86901; 97165; C1713; C1776; J0690; J1100; J2001; J2250; J2405; J2550; J2704; J2795; J3010; J7050; J7060; L3670

== ENCOUNTER → 2018-12-19 | Outpatient (CLI) | payer MEDICARE, OTHER ==
[2018-11-28 11:47] VITALS: BMI 26.3
[~2018-12-19] MED LIST changes: +ROSU20TA24 PO
[2018-12-19 11:51] LABS: PLATELET COUNT, AUTOMATED 141 K/uL (150-450)
== END ==
LOC: LAB 11:05
PROVIDERS: ATTEND Internal Medicine
DX: E78.5 Hyperlipidemia, unspecified (principal); I10 Essential (primary) hypertension; E03.9 Hypothyroidism, unspecified
CPT/HCPCS: 36415; 82040; 82247; 82310; 82374; 82435; 82565; 82947; 83735; 84075; 84132; 84155; 84295; 84450; 84460; 84520; 85025

== ENCOUNTER 2019-03-04 07:00 | Emergency (ER) | payer MEDICARE, OTHER ==
[2018-11-28 11:47] VITALS: Wt 65.8 kg
[2019-03-04] MEDS ORDERED: NS(*) 0.9% 1000 ML BAG 1,000 ML IV ONE (07:13)
[2019-03-04] MEDS ORDERED: ASPIRIN 81 MG CHEW CHEW ONE (07:15)
--- NOTE | 2019-03-04 07:18 | EKG ---
FACILITY: [facility] [place] PATIENT NAME: SIGIFREDO SCHULTZ : [id number] MR: [id number] V: [id number] EXAM DATE: ORDERING PHYSICIAN: YUMIKO MOTTA TECHNOLOGIST: Test Reason : chest pain Blood Pressure : / mmHG Vent. Rate : 062 BPM Atrial Rate : 062 BPM P-R Int : 194 ms QRS Dur : 108 ms QT Int : 398 ms P-R-T Axes : 070 018 036 degrees QTc Int : 403 ms Normal sinus rhythm Non-specific intraventricular conduction delay Non-specific st changes When compared with ECG of 13-SEP-2018 10:14, No significant change was found Confirmed by Kam Rose ([id number]) on 03/04/2019 7:31:07 AM Referred By: Confirmed By:Kam Foreman
[2019-03-04 07:23] LABS: PLATELET COUNT, AUTOMATED 120 K/uL (150-450)
--- NOTE | 2019-03-04 07:35 | ER Report ---
History and Physical Time Seen By MD: 07:34 Hx. of Stated Complaint: CHEST PAIN FOR 2 HOURS. STARTED WHEN SHE GOT UP TO GO TO THE BATHROOM HPI/ROS History of CAD with [place] and stents in 2014. She presents appearing well, but stating she awoke to go to the bathroom at 0330 and felt pain in her chest. It is substernal, non radiating. No SOB, n/v, or diaphoresis. The pain has been constant since then. Was supposed to get a yearly stress test, but has not followed up with her supervisor dried yeast in [place]. She is still having 2/10 chest pain. Nothing makes it worse or better. No trauma. No cough. No fever/chills. No other complaints Remainder of the 14 system rev: Yes Allergies: Coded Allergies: oxycodone (Verified Allergy, Intermediate, 06/29/17) prednisone (Verified Allergy, Mild, UNKNOWN, 06/29/17) piroxicam (Verified Allergy, Unknown, GI, 06/29/17) sulindac (Verified Allergy, Unknown, GI, 06/29/17) propoxyphene HCl (Verified Adverse Reaction, Severe, NAUSEA/VOMITING, 06/29/17) valsartan (Verified Adverse Reaction, Severe, NAUSEA/VOMITING, 06/29/17) celecoxib (Verified Adverse Reaction, Mild, N&V, 06/29/17) dipyridamole (Verified Adverse Reaction, Mild, N&V, 06/29/17) doxepin (Verified Adverse Reaction, Mild, N&V, 06/29/17) morphine (Verified Adverse Reaction, Mild, N&V, 06/29/17) orphenadrine (Verified Adverse Reaction, Mild, N&V, 06/29/17) propoxyphene (Verified Adverse Reaction, Mild, N&V, 06/29/17) tramadol (Verified Adverse Reaction, Mild, N&V, 06/29/17) Home Meds Active Scripts Meclizine Hcl (MECLIZINE HCL) 25 Mg Tab.chew, 25 MG PO TID PRN for dizziness, #60 TAB.CHEW 1 Refill Prov:CARLOTTA BILLINGSLEY MD 08/13/18 Levothyroxine Sodium (LEVOTHYROXINE SODIUM) 25 Mcg Tablet, 25 MCG PO QDAY, #90 TAB 3 Refills Prov:CARLOTTA BILLINGSLEY MD 05/14/18 Reported Medications Methylsulfonylmethane (MSM) 1,000 Mg Capsule, 1000 MG PO DAILY, CAPSULE 11/19/18 Potassium Gluconate (POTASSIUM) 99 Mg Tablet, 99 MG PO DAILY 05/14/18 Glucosamine Sulfate 2KCL (GLUCOSAMINE) 1,000 Mg Tablet, 1000 MG PO QDAY 03/14/18 Vit A/Vit C/Vit E/Zinc/Copper (PRESERVISION AREDS SOFTGEL) 1 Each Capsule, 2 EACH PO DAILY, CAPSULE 10/16/17 Cyanocobalamin (Vitamin B-12) (Vitamin B12) Unknown Strength Tab.chew, 1000 MCG PO DAILY 10/16/17 Mu-Vits-Min Th/Lycopene/Lutein (CENTRUM SILVER TABLET) 1 Each Tablet, 1 EACH PO 10/16/17 Aspirin (ASPIRIN) 81 Mg Tab.chew, 81 MG PO QDAY, TAB.CHEW 09/29/17 Atorvastatin Calcium (LIPITOR) 40 Mg Tablet, 1 TAB PO QDAY, TAB 04/26/17 Losartan/Hydrochlorothiazide (HYZAAR 50-12.5 TABLET) 1 Each Tablet, 1 EACH PO BID 04/22/17 Reviewed Nurses Notes: Yes Old Medical Records Reviewed: Yes Hx Smoking: No Smoking Status: Never Smoker Exposure to Second Hand Smoke?: No Hx Substance Use Disorder: No Hx Alcohol Use: No Constitutional Vital Sign - Last 24 Hours 03/04/19 03/04/19 03/04/19 03/04/19 07:00 07:02 07:03 07:08 Temp 97.4 Pulse 68 77 Resp 16 B/P (MAP) 199/80 199/80 (119) Pulse Ox 84 O2 Delivery Room Air O2 Flow Rate 2.0 03/04/19 03/04/19 03/04/19 03/04/19 07:09 07:15 07:20 07:35 Pulse 62 58 59 Resp 19 22 16 B/P (MAP) 193/75 (114) 189/68 (108) Pulse Ox 93 96 99 03/04/19 03/04/19 03/04/19 03/04/19 07:45 07:50 08:00 08:05 Pulse 53 56 Resp 15 10 B/P (MAP) 188/72 (110) 183/66 (105) Pulse Ox 100 100 6/303/04/19 03/04/19 03/04/19 08:10 08:15 08:25 08:30 Pulse 54 53 Resp 14 10 B/P (MAP) 181/70 (107) 181/68 (105) Pulse Ox 100 100 03/04/19 03/04/19 03/04/19 03/04/19 08:40 08:45 09:00 09:15 Pulse 52 53 54 57 Resp 14 14 11 B/P (MAP) 176/72 (106) 184/69 (107) 177/65 (102) Pulse Ox 96 96 97 98 03/04/19 03/04/19 03/04/19 03/04/19 09:30 09:35 09:45 09:50 Pulse 53 55 54 Resp 16 12 9 B/P (MAP) 171/65 (100) 169/67 (101) Pulse Ox 99 98 98 03/04/19 03/04/19 03/04/19 03/04/19 10:00 10:05 10:15 10:20 Pulse 57 55 Resp 17 16 B/P (MAP) 175/68 (103) 134/107 (116) Pulse Ox 97 97 03/04/19 03/04/19 03/04/19 03/04/19 10:30 10:35 10:45 10:50 Pulse 54 55 Resp 14 13 B/P (MAP) 181/70 (107) 174/66 (102) Pulse Ox 98 98 Intake and Output 03/04/19 03/04/19 03/05/19 15:00 23:00 07:00 Intake Total 1000 ml Balance 1000 ml Physical Exam General Appearance: The patient is alert, has no immediate need for airway protection and no current signs of toxicity. Eyes: Pupils equal and round no injection. Respiratory: Chest is non tender, lungs are clear to auscultation. Cardiac: regular rate and rhythm Gastrointestinal: Abdomen is soft and non tender, no masses, bowel sounds normal. Neck: Neck is supple and non tender. Extremities have full range of motion and are non tender. DIFFERENTIAL DIAGNOSIS: After history and physical exam differential diagnosis was considered for chest pain including but not limited to myocardial ischemia, pericarditis pulmonary embolus, chest wall pain, pleural inflammation and pulmonary infectious causes. Medical Decision Making Data Points Result Diagram: 03/04/19 0709 03/04/19 0709 Laboratory Hematology Test 03/04/19 07:09 03/04/19 09:56 Red Blood Count 4.76 M/uL (4.17-5.56) Mean Corpuscular Volume 89.9 fL (80.0-96.0) Mean Corpuscular Hemoglobin 30.3 pg (26.0-33.0) Mean Corpuscular Hemoglobin Concent 33.7 g/dL (32.0-36.0) Red Cell Distribution Width 15.0 % (11.5-14.5) Mean Platelet Volume 9.8 fL (7.2-11.1) Neutrophils (%) (Auto) 47.6 % (39.4-72.5) Lymphocytes (%) (Auto) 43.3 % (17.6-49.6) Monocytes (%) (Auto) 6.7 % (4.1-12.4) Eosinophils (%) (Auto) 1.3 % (0.4-6.7) Basophils (%) (Auto) 1.1 % (0.3-1.4) Nucleated RBC Relative Count (auto) 0.0 /100WBC Neutrophils # (Auto) 2.8 K/uL (2.0-7.4) Lymphocytes # (Auto) 2.5 K/uL (1.3-3.6) Monocytes # (Auto) 0.4 K/uL (0.3-1.0) Eosinophils # (Auto) 0.1 K/uL (0.0-0.5) Basophils # (Auto) 0.1 K/uL (0.0-0.1) Nucleated RBC Absolute Count (auto) 0.00 K/uL Sodium Level 140 mmol/L (137-145) Potassium Level 3.6 mmol/L (3.5-5.0) Chloride Level 102 mmol/L (98-107) Carbon Dioxide Level 31 mmol/L (22-31) Blood Urea Nitrogen 20 mg/dl (7-18) Creatinine 0.60 mg/dl (0.52-1.04) Glomerular Filtration Rate Calc > 60.0 Random Glucose 89 mg/dl (75-110) Calcium Level 9.6 mg/dl (8.4-10.2) Total Bilirubin 0.8 mg/dl (0.2-1.3) Aspartate Amino Transf (AST/SGOT) 37 U/L (0-35) Alanine Aminotransferase (ALT/SGPT) 41 U/L (0-56) Alkaline Phosphatase 89 U/L (0-126) Total Protein 6.8 g/dl (6.3-8.2) Albumin 4.0 g/dl (3.5-5.0) Troponin I < 0.012 ng/ml Chemistry Test 03/04/19 07:09 03/04/19 09:56 White Blood Count 5.8 k/uL (4.5-11.0) Red Blood Count 4.76 M/uL (4.17-5.56) Hemoglobin 14.4 g/dL (12.0-16.0) Hematocrit 42.8 % (34.0-47.0) Mean Corpuscular Volume 89.9 fL (80.0-96.0) Mean Corpuscular Hemoglobin 30.3 pg (26.0-33.0) Mean Corpuscular Hemoglobin Concent 33.7 g/dL (32.0-36.0) Red Cell Distribution Width 15.0 % (11.5-14.5) Platelet Count 120 K/uL (150-450) Mean Platelet Volume 9.8 fL (7.2-11.1) Neutrophils (%) (Auto) 47.6 % (39.4-72.5) Lymphocytes (%) (Auto) 43.3 % (17.6-49.6) Monocytes (%) (Auto) 6.7 % (4.1-12.4) Eosinophils (%) (Auto) 1.3 % (0.4-6.7) Basophils (%) (Auto) 1.1 % (0.3-1.4) Nucleated RBC Relative Count (auto) 0.0 /100WBC Neutrophils # (Auto) 2.8 K/uL (2.0-7.4) Lymphocytes # (Auto) 2.5 K/uL (1.3-3.6) Monocytes # (Auto) 0.4 K/uL (0.3-1.0) Eosinophils # (Auto) 0.1 K/uL (0.0-0.5) Basophils # (Auto) 0.1 K/uL (0.0-0.1) Nucleated RBC Absolute Count (auto) 0.00 K/uL Glomerular Filtration Rate Calc > 60.0 Calcium Level 9.6 mg/dl (8.4-10.2) Total Bilirubin 0.8 mg/dl (0.2-1.3) Aspartate Amino Transf (AST/SGOT) 37 U/L (0-35) Alanine Aminotransferase (ALT/SGPT) 41 U/L (0-56) Alkaline Phosphatase 89 U/L (0-126) Total Protein 6.8 g/dl (6.3-8.2) Albumin 4.0 g/dl (3.5-5.0) Troponin I < 0.012 ng/ml ED Course/Re-evaluation ED Course EKG at baseline, and no dynamic changes. CXR WNL. No evidence of infection. Not c/w dissection. Serial troponins are both negative. Chest pain free after ED stay. Given her cardiac history, I think she needs a stress test in the next 1-2 weeks. I arranged a stress test for her in [place], and she will follow up with cardiology soon after. I gave her strict return precautions to come back to the ED if her symptoms persist. Decision to Disposition Date: Mar 04, 2019 Decision to Disposition Time: 11:09 Depart Departure Latest Vital Signs Vital Signs Date Time Temp Pulse Resp B/P (MAP) Pulse Ox O2 Delivery O2 Flow Rate FiO2 03/04/19 10:50 55 13 98 03/04/19 10:45 174/66 (102) 03/04/19 07:08 2.0 03/04/19 07:02 97.4 Room Air Impression: Primary Impression: Chest pain Condition: Improved Disposition: HOME OR SELF-CARE Referrals: CARLOTTA BILLINGSLEY MD (PCP) Patient Instructions: Chest Pain (ED) Additional Instructions: You will get a phone call to schedule your nuclear medicine stress test. Also please follow up with your supervisor dried yeast in the next 1-2 weeks. Problem Qualifiers Primary Impression: Chest pain Chest pain type: unspecified Qualified Codes: R07.9 - Chest pain, unspecified YUMIKO MOTTA MD Mar 04, 2019 07:35
--- NOTE | 2019-03-04 07:52 | RADIOLOGY IMAGING REPORT ---
FACILITY: [facility] - [place] PATIENT NAME: Kassidy Stearns : 1935 MR: [id number] V: [id number] EXAM DATE: ORDERING PHYSICIAN: YUMIKO MOTTA TECHNOLOGIST: Location: [facility] Patient: Kassidy Stearns : 1935 Visit/Account:[id number] Date of Sevice: 03/04/2019 CHEST: Indication: Chest pain. Technique: Frontal and lateral views were obtained. Comparison: 12/17/2016 Skeletal and soft tissue structures: A left shoulder prosthesis is now present. There is chronic cindy neralization and diffuse degenerative changes in the thoracic spine. No fracture or acute skeletal de formity is clearly identified. Surgical clips in the left axilla appear unchanged. Heart and mediastinum: There is mild cardiomegaly. Lung roper: Well-expanded and clear. No focal parenchymal opacities. No evidence of vascular congest ion. Pleural spaces: Unremarkable. Impression: Mild cardiomegaly. No parenchymal or pleural abnormality is identified. Report Dictated By: Abdifatah Arnold MD at 03/04/2019 7:44 AM Report E-Signed By: Abdifatah Arnold MD at 03/04/2019 7:48 AM WSN:[id number]
[2019-03-04 10:45] VITALS: BP 174/66
== END 2019-03-04 11:19 | disposition home or self-care (01) ==
LOC: ER 07:36
DX: R07.9 Chest pain, unspecified (principal)
CPT/HCPCS: 71046; 84484; 85025; 93005; 96360; 99284; A9270; J7030; 82040; 82247; 82310; 82374; 82435; 82565; 82947; 84075; 84132; 84155; 84295; 84450; 84460; 84520

== ENCOUNTER → 2019-04-25 | Outpatient (CLI) | payer MEDICARE, OTHER ==
[2018-11-28 11:47] VITALS: BMI 26.3
== END ==
LOC: LAB 14:56
PROVIDERS: ATTEND Family Medicine
DX: E03.9 Hypothyroidism, unspecified (principal); I10 Essential (primary) hypertension; R42 Dizziness and giddiness; R53.1 Weakness
CPT/HCPCS: 36415; 82607; 84443